=== PATIENT | female | born 1960 | race Caucasian/White ===

== ENCOUNTER 2017-06-08 14:17 | Observation (INO) ==
[2017-06-08 14:31] LABS: Bilirubin,Urine Negative (Negative); Blood,Urine Trace (Negative); Color,Urine Yellow (Yellow); Glucose,Urine (UA) >=1000 mg/dL (Normal); Ketones,Urine Negative (Negative); Leukocyte Esterase,Urine Negative (Negative); Nitrite,Urine Positive (Negative); PH,Urine 5.5 pH Units (5.0-8.0); Protein,Urine 30 mg/dL (Neg-Trace); Specific Gravity,Urine > 1.030 (1.010-1.025); Urobilinogen,Urine Normal (Normal)
[2017-06-08 14:36] LABS: Bacteria,Urine Many per hpf (None-Few); Hyaline Casts,Urine None Seen per lpf (None-Few); RBC,Urine 0-3 per hpf (0-3); Squamous Epithelial Cell,Urine Many per lpf (None-Few)
[2017-06-08 14:44] LABS: Clarity,Urine Slightly Hazy (Clear)
--- NOTE | 2017-06-08 14:49 | Emergency Department Note ---
Disposition Clinical Impression: Confusion Headache Qualifiers: Headache type: unspecified Headache chronicity pattern: acute headache Intractability: not intractable Qualified Code(s): R51 - Headache UTI (urinary tract infection) Qualifiers: Urinary tract infection type: site unspecified Hematuria presence: without hematuria Qualified Code(s): N39.0 - Urinary tract infection, site not specified Disposition: Admitted As Inpatient Condition: Fair Time of Disposition: 18:29 Headache HPI - General Stated Complaint: GROVE / AMS Time Seen by Provider: 06/08/17 14:18 Source: patient, EMS Mode of arrival: EMS Limitations: no limitations Nursing Notes Reviewed: Yes Vital Signs Reviewed: Yes - History of Present Illness HPI Narrative: 57-year-old female history hypertension, diabetes presents an emergency department via EMS for altered mental status. EMS reports daughter state that she was altered. Further EMS she was awake alert and oriented person place and time. They said their stroke scale was unremarkable. She did have a elevated blood glucose level of 450 that improved with fluids. She is also complaining of some chest pain that is been ongoing for the past 3 days. Describes as midsternal that sometimes wraps the left chest. She denies any shortness of breath or diaphoresis. She is also complaining of a headache that occurred around 1030 this morning states is a pressure on the top of her head. She denies any nausea or vomiting. Denies any blurry vision or neck pain. She states she has a history of restless leg and she takes gabapentin for this. Denies any recent illness, fever, cough. On examination she is awake alert and oriented person place and time. She seen moving all for extremities in a chaotic on a motion however when she is directed she is more calm. She is seen hitting her head in a violent behavior complaining of her headache. Given the complaint of altered mental status will work her up with CT of the head as well as urine basic labs chest x-ray EKG. Pt Subjective Complaint: headache Pain Scale: 5 - Related Data Home Medications Medication Instructions Recorded Confirmed Atenolol [Tenormin] 25 mg PO BID 11/11/14 03/31/17 Atorvastatin [Lipitor] 40 mg PO HS 11/11/14 03/31/17 Fluticasone Propionate Nasal 1 spray NS DAILY 11/11/14 03/31/17 [Flonase] Insulin Glargine,Hum.rec.anlog 35 unit SQ DAILY 11/11/14 03/31/17 [Lantus Solostar] Potassium Chloride 20 meq PO DAILY 11/11/14 03/31/17 metFORMIN [Glucophage] 1,000 mg PO BIDWM 11/11/14 03/31/17 rOPINIRole [Requip] 0.25 mg PO QID 11/11/14 03/31/17 Triamterene/HCTZ 37.5/25mg 1 tab PO DAILY 03/13/15 03/31/17 [Dyazide] Albuterol Sulfate [Proair Hfa] 2 puff IH Q4H PRN 07/24/15 03/31/17 Fenofibrate [Lofibra] 145 mg PO DAILY 07/24/15 03/31/17 Lisinopril [Zestril] 10 mg PO DAILY 07/24/15 03/31/17 Nitroglycerin [Nitrostat] 0.4 mg SL Q5-10MIN PRN 07/24/15 03/31/17 Gabapentin [Neurontin] 800 mg PO 3-4XD 08/02/16 03/31/17 Tramadol HCl [Ultram] 50 mg PO BID PRN 08/02/16 03/31/17 Previous Rx's Medication Instructions Recorded Budesonide/Formoterol 160/4.5 2 puff IH BIDR inhaler 01/06/16 [Symbicort 160/4.5] Naproxen [Naprosyn] 500 mg PO BID PRN #15 tablet 05/01/16 Cyclobenzaprine [Flexeril] 10 mg PO TID #15 tablet 08/02/16 Ibuprofen [Motrin] 800 mg PO Q8HR #15 tablet 08/02/16 Albuterol Neb [Proventil Neb] 2.5 mg IH Q4HR PRN #30 vial.neb 10/07/16 PredniSONE [Deltasone] 10 mg PO TAPER #48 tablet 10/07/16 Ondansetron ODT [Zofran ODT] 4 mg SL Q4HR PRN #10 tab.rapdis 11/28/16 Diphenoxylate/Atropine [Lomotil 2 each PO QID #10 tablet 11/29/16 2.5 mg/0.025 mg] Diclofenac Sodium [Voltaren] 50 mg PO Q8HR #21 tablet. 03/31/17 Orphenadrine [Norflex] 100 mg PO Q12HR #20 tablet.er 03/31/17 Allergies Allergy/AdvReac Type Severity Reaction Status Date / Time No Known Allergies Allergy Verified 03/31/17 15:16 All systems ED: reviewed and negative except as stated. Review of Systems: As Per HPI Constitutional: Denies: fever, chills ENT ED: Denies: congestion Cardiovascular: Reports: chest pain. Denies: dyspnea on exertion Respiratory: Denies: cough, dyspnea Gastrointestinal: Denies: abdominal pain, nausea, vomiting Genitourinary: Denies: urgency, dysuria Musculoskeletal: Denies: back pain, neck pain Integumentary: Denies: rash, abrasion Neurological: Reports: headache Psychiatric: Denies: anxiety Headache PMH - Past Medical History Medical history: Reports: COPD, diabetes, GERD, hyperlipidemia, hypertension, other Female Surgical History: Reports: , cholecystectomy, hysterectomy, other Psychiatric history: Reports: no psych history SAFETY SITTER history: Reports: no SAFETY SITTER history - Social History Smoking Status: Current every day smoker Alcohol use: Reports: none Drug use: Reports: none Physical Exam - General Limitations: altered mental status General appearance: alert, in no apparent distress - Head Head exam: atraumatic, normocephalic, normal inspection - Eye Eye exam: Present: normal appearance, PERRL, EOMI - ENT ENT exam: normal exam, normal oropharynx, mucous membranes moist - Neck Neck exam: Present: normal inspection, full ROM, trachea midline - Chest Chest inspection: Present: normal inspection, symmetric chest wall rise - Respiratory Respiratory exam: Present: normal lung sounds bilaterally - Cardiovascular Cardiovascular exam: Present: regular rate, normal rhythm, normal heart sounds. Absent: systolic murmur, diastolic murmur - Abdominal Exam Abdominal exam: Present: soft, Non-Tender, normal bowel sounds. Absent: tenderness, distention, guarding, rebound, rigidity - Extremities Exam Extremities exam: Present: normal inspection, full ROM, normal capillary refill. Absent: tenderness, pedal edema, calf tenderness - Back Exam Back exam: Present: normal inspection, full ROM. Absent: tenderness - Neurological Exam Neurological exam: Present: alert, oriented X3, CN II-XII intact - Expanded Neurological Exam Patient oriented to: Present: person, place, time Cranial nerves: EOM function (II, III, IV, ): Normal, facial sensation (V): Normal, facial palsy (VII): Normal, gag reflex (IX): Normal, spinal accessory function (XI): Normal, tongue deviation (XII): Normal Motor strength - LUE: 5/5 Motor strength - RUE: 5/5 Motor strength - LLE: 5/5 Motor strength - RLE: 5/5 - Psychiatric Psychiatric exam: Present: normal affect, normal mood - Skin Skin exam: Present: warm, dry, intact, normal color Course Course Narrative: On repeat evaluation with daughters at that side, they say patient is not quite acting herself. Earlier today she was complaining of a headache and seen hitting herself in the head. They say this is not normal. Patient also has been having elevated blood pressures which she described as a throbbing sensation. Stated the sometimes felt like it made her headache worse. The patient now states that she has a history of migraines and several years ago had a similar episode like this headache. At this time her headache has completely resolved. Review of CT head is unremarkable for any intracranial abnormality. CT was performed within 6 hours of onset. She does not have a focal neural deficits on examination. No facial droop. No neck stiffness or meningeal signs. Less likely to be subarachnoid hemorrhage. Patient appears no more alert than prior. Review of her urine, urinalysis is consistent with infection. She will be treated for urinary tract infection with Ceftriaxone. Review of labs, no leukocytosis. Her liver function appears normal. She denies history of liver disease. Her ammonia however is elevated at 56. At this moment because she is not encephalopathy we have decided to not treat her with any lactulose. She has a history diabetes in her blood glucose is in the 300s with IV fluid hydration. Her urinalysis does not show ketones. She does not have a metabolic acidosis. She is not having any to small breathing abdominal tenderness to suggest DKA. Her chest pain she initially complained, she felt her heart pounding was in association with her pulse. She associated it to the chest pain that she is been experiencing the past 3 days. Her EKG did not reveal any acute ischemic changes. Troponin is less than 0.03. At this time low suspicion for ACS. I had a long discussion with the patient and daughters in the room and they state that she is not quite at baseline. Given her initial presentation of confusion and violent behavior patient will be admitted for observation and treated for her urinary tract infection. Impression is confusion, urinary tract infection and headache. - Consultations Consultation #1: Spoke with on-call hospitalist rodrick Mejia to admit for UTI, confusion , headache. No further orders at this time. Vital Signs Temperature 97.9 F 06/08/17 14:19 Pulse Rate 105 06/08/17 14:19 Respiratory Rate 22 06/08/17 14:19 Blood Pressure 130/59 06/08/17 14:19 O2 Sat by Pulse Oximetry 97 06/08/17 14:19 Temperature 97.9 F 06/08/17 14:53 Pulse Rate 89 06/08/17 18:29 Respiratory Rate 18 06/08/17 18:29 Blood Pressure 138/89 06/08/17 18:29 O2 Sat by Pulse Oximetry 97 06/08/17 18:29 Oxygen Delivery Oxygen Delivery Nasal Cannula Headache - MDM Narrative Medical decision making narrative: Patient was discussed with my attending physician who agrees with ED management and final disposition. They independently evaluated the patient. Please refer to their attestation to this encounter for additional information. This note was generated by [employer] voice recognition software and as a result grammatical or spelling errors may occur using this program. - Medical Records Medical records reviewed: Yes I reviewed the patient's medical records. - Lab Data Lab results reviewed: Yes I reviewed the patient's lab results. Result diagrams: 06/08/17 14:31 06/08/17 14:31 Lab Results 06/08/17 06/08/17 06/08/17 Range/Units 14:20 14:31 14:31 WBC 7.5 (4.3-11.1) K/mcL RBC 5.30 H (3.82-4.97) M/mcL Hgb 15.4 (11.5-15.4) g/dL Hct 44.9 (35.3-44.9) % MCV 84.7 (83.0-100.0) fL MCH 29.1 (28.0-33.3) pg MCHC 34.3 (31.6-35.5) g/dL RDW 13.7 (11.5-14.5) % Plt Count 187 (140-400) K/mcL MPV 9.7 (9.4-12.4) fL Immature Gran % 0.3 (0-4) % Seg Neutrophils % 64.2 % Lymphocytes % 27.9 % Monocytes % 5.2 % Eosinophils % 2.0 % Basophils % 0.4 % Neutrophils # 4.8 (1.6-8.9) K/mcL Lymphocytes # 2.1 (0.6-4.6) K/mcL Monocytes # 0.4 (0.0-1.3) K/mcL Eosinophils # 0.2 (0.0-0.6) K/mcL Basophils # 0.0 (0.0-0.2) K/mcL PT 10.7 (9.4-12.1) Seconds INR 1.0 APTT 26.8 (26.0-36.0) Seconds Sodium (136-145) mEq/L Potassium (3.5-5.1) mEq/L Chloride (98-107) mEq/L Carbon Dioxide (23-29) mEq/L BUN (6-20) mg/dL Creatinine (0.60-1.20) mg/dL Est GFR ( Amer) (> 60) Est GFR (Non-Af Amer) (> 60) BUN/Creatinine Ratio (6-26) Glucose (70-105) mg/dL Calculated Osmolality (280-300) Calcium (8.6-10.3) mg/dL Magnesium (1.6-2.6) mg/dL Total Bilirubin (0.3-1.0) mg/dL Direct Bilirubin (0.0-0.2) mg/dL Indirect Bilirubin (0.0-1.2) mg/dL AST (13-39) Units/L ALT (7-52) Units/L Alkaline Phosphatase (34-104) Units/L Ammonia (16-53) mcmol/L Troponin I (< 0.04) ng/mL Serum Total Protein (6.4-8.9) g/dL Albumin (3.5-5.7) g/dL Globulin (2.4-3.5) g/dL Albumin/Globulin Ratio (1.1-2.2) Urine Color Yellow (Yellow) Urine Clarity Slightly Hazy (Clear) Urine pH 5.5 (5.0-8.0) pH Units Ur Specific [place] > 1.030 H (1.010-1.025) Urine Protein 30 H (Neg-Trace) mg/dL Urine Glucose (UA) >=1000 H (Normal) mg/dL Urine Ketones Negative (Negative) mg/dL Urine Blood Trace H (Negative) Urine Nitrite Positive A (Negative) Urine Bilirubin Negative (Negative) Urine Urobilinogen Normal (Normal) mg/dL Ur Leukocyte Esterase Negative (Negative) Urine Microscopic RBC 0-3 (0-3) per hpf Urine Microscopic WBC 3-5 H (0-3) per hpf Ur Squamous Epith Cells Many H (None-Few) per lpf Urine Bacteria Many H (None-Few) per hpf Hyaline Casts None Seen (None-Few) per lpf Ur Culture Indicated? NO. A (NO) 06/08/17 06/08/17 Range/Units 14:31 15:18 WBC (4.3-11.1) K/mcL RBC (3.82-4.97) M/mcL Hgb (11.5-15.4) g/dL Hct (35.3-44.9) % MCV (83.0-100.0) fL MCH (28.0-33.3) pg MCHC (31.6-35.5) g/dL RDW (11.5-14.5) % Plt Count (140-400) K/mcL MPV (9.4-12.4) fL Immature Gran % (0-4) % Seg Neutrophils % % Lymphocytes % % Monocytes % % Eosinophils % % Basophils % % Neutrophils # (1.6-8.9) K/mcL Lymphocytes # (0.6-4.6) K/mcL Monocytes # (0.0-1.3) K/mcL Eosinophils # (0.0-0.6) K/mcL Basophils # (0.0-0.2) K/mcL PT (9.4-12.1) Seconds INR APTT (26.0-36.0) Seconds Sodium 138 (136-145) mEq/L Potassium 4.0 (3.5-5.1) mEq/L Chloride 104 (98-107) mEq/L Carbon Dioxide 26 (23-29) mEq/L BUN 23 H (6-20) mg/dL Creatinine 0.94 (0.60-1.20) mg/dL Est GFR ( Amer) > 60 (> 60) Est GFR (Non-Af Amer) > 60 (> 60) BUN/Creatinine Ratio 24 (6-26) Glucose 324 H (70-105) mg/dL Calculated Osmolality 302 H (280-300) Calcium 9.1 (8.6-10.3) mg/dL Magnesium 1.8 (1.6-2.6) mg/dL Total Bilirubin 0.4 (0.3-1.0) mg/dL Direct Bilirubin 0.1 (0.0-0.2) mg/dL Indirect Bilirubin 0.3 (0.0-1.2) mg/dL AST 20 (13-39) Units/L ALT 17 (7-52) Units/L Alkaline Phosphatase 84 (34-104) Units/L Ammonia 56 H (16-53) mcmol/L Troponin I < 0.03 (< 0.04) ng/mL Serum Total Protein 6.6 (6.4-8.9) g/dL Albumin 3.8 (3.5-5.7) g/dL Globulin 2.8 (2.4-3.5) g/dL Albumin/Globulin Ratio 1.4 (1.1-2.2) Urine Color (Yellow) Urine Clarity (Clear) Urine pH (5.0-8.0) pH Units Ur Specific [place] (1.010-1.025) Urine Protein (Neg-Trace) mg/dL Urine Glucose (UA) (Normal) mg/dL Urine Ketones (Negative) mg/dL Urine Blood (Negative) Urine Nitrite (Negative) Urine Bilirubin (Negative) Urine Urobilinogen (Normal) mg/dL Ur Leukocyte Esterase (Negative) Urine Microscopic RBC (0-3) per hpf Urine Microscopic WBC (0-3) per hpf Ur Squamous Epith Cells (None-Few) per lpf Urine Bacteria (None-Few) per hpf Hyaline Casts (None-Few) per lpf Ur Culture Indicated? (NO) - Radiology Data Radiology results reviewed: Yes I reviewed the patient's radiology results. Chest X-Ray 06/08/17 14:18 IMPRESSION: No acute abnormalities seen in the chest D/ / Josias Rojas MD / Josias Rojas MD Interpreting Provider: Josias Rojas MD Head CT 06/08/17 14:19 IMPRESSION: No acute intracranial abnormality. D/ / Trenton Arceo / Trenton Arceo Interpreting Provider: Trenton Arceo - EKG Data EKG attestation: Yes I reviewed and interpreted this EKG. EKG results narrative: EKG performed 1411 sinus tachycardia 112 beats per minute, normal axis, no ST elevation or depression, no T wave inversion, some baseline artifact otherwise no acute ischemic changes. Intervals appear within normal limits. Compared to prior EKG performed 11/29/2016 shows similar consistent findings of sinus tachycardia 1 26 bpm. Attestation Statement - Attestation Attestation: I, Billy Magallon DO, examined this patient [id number] and my medical decision-making was reviewed with Trenton Bach DO , Resident Physician. I agree with the documented findings, disposition and treatment plan as described except to the extent set forth below. Please see my progress notes for details.
[2017-06-08 15:06] LABS: Basophils % 0.4 %; Eosinophils # 0.2 K/mcL (0.0-0.6); Hematocrit 44.9 % (35.3-44.9); Hemoglobin 15.4 g/dL (11.5-15.4); Immature Granulocytes % 0.3 % (0-4); Lymphocytes # 2.1 K/mcL (0.6-4.6); Lymphocytes % 27.9 %; Mean Corpuscular HGB Conc 34.3 g/dL (31.6-35.5); Mean Corpuscular Hemoglobin 29.1 pg (28.0-33.3); Mean Corpuscular Volume 84.7 fL (83.0-100.0); Mean Platelet Volume 9.7 fL (9.4-12.4); Monocytes # 0.4 K/mcL (0.0-1.3); Monocytes % 5.2 %; Neutrophils # 4.8 K/mcL (1.6-8.9); Platelet Count 187 K/mcL (140-400); Red Cell Distribution Width 13.7 % (11.5-14.5); Segmented Neutrophils % 64.2 %
[2017-06-08 15:11] LABS: Prothrombin Time 10.7 Seconds (9.4-12.1)
[2017-06-08 15:14] LABS: Activated Partial Thrombo Time 26.8 Seconds (26.0-36.0)
[2017-06-08 15:24] LABS: Troponin I < 0.03 ng/mL (< 0.04)
[2017-06-08 15:26] LABS: Alanine Aminotransferase 17 Units/L (7-52); Albumin 3.8 g/dL (3.5-5.7); Albumin/Globulin Ratio 1.4 (1.1-2.2); Alkaline Phosphatase 84 Units/L (34-104); Aspartate Amino Transferase 20 Units/L (13-39); BUN/Creatinine Ratio 24 (6-26); Bilirubin,Direct 0.1 mg/dL (0.0-0.2); Bilirubin,Indirect 0.3 mg/dL (0.0-1.2); Bilirubin,Total 0.4 mg/dL (0.3-1.0); Blood Urea Nitrogen 23 mg/dL (6-20); Calcium 9.1 mg/dL (8.6-10.3); Carbon Dioxide 26 mEq/L (23-29); Chloride 104 mEq/L (98-107); Globulin 2.8 g/dL (2.4-3.5); Glucose 324 mg/dL (70-105); Osmolality,Calculated 302 (280-300); Sodium 138 mEq/L (136-145); Total Protein 6.6 g/dL (6.4-8.9); eGFR For African Americans > 60 (> 60); eGFR For Non-African Americans > 60 (> 60)
[2017-06-08 15:36] LABS: Magnesium 1.8 mg/dL (1.6-2.6)
--- NOTE | 2017-06-08 15:44 | Emergency Department Note ---
Disposition Clinical Impression: Headache, Confusion, UTI (urinary tract infection) Disposition: Admitted As Inpatient Condition: Fair Forms: ED Satisfaction Letter Time of Disposition: 17:56 General Adult HPI - General Chief complaint: ED Chest Pain Stated complaint: [facility] / A[facility] Time Seen by Provider: 06/08/17 14:18 Source: patient, EMS Mode of arrival: EMS Limitations: no limitations - History of Present Illness Pain Scale: 5 - Related Data Home Medications Medication Instructions Recorded Confirmed Atenolol [Tenormin] 25 mg PO BID 11/11/14 03/31/17 Atorvastatin [Lipitor] 40 mg PO HS 11/11/14 03/31/17 Fluticasone Propionate Nasal 1 spray NS DAILY 11/11/14 03/31/17 [Flonase] Insulin Glargine,Hum.rec.anlog 35 unit SQ DAILY 11/11/14 03/31/17 [Lantus Solostar] Potassium Chloride 20 meq PO DAILY 11/11/14 03/31/17 metFORMIN [Glucophage] 1,000 mg PO BIDWM 11/11/14 03/31/17 rOPINIRole [Requip] 0.25 mg PO QID 11/11/14 03/31/17 Triamterene/HCTZ 37.5/25mg 1 tab PO DAILY 03/13/15 03/31/17 [Dyazide] Albuterol Sulfate [Proair Hfa] 2 puff IH Q4H PRN 07/24/15 03/31/17 Fenofibrate [Lofibra] 145 mg PO DAILY 07/24/15 03/31/17 Lisinopril [Zestril] 10 mg PO DAILY 07/24/15 03/31/17 Nitroglycerin [Nitrostat] 0.4 mg SL Q5-10MIN PRN 07/24/15 03/31/17 Gabapentin [Neurontin] 800 mg PO 3-4XD 08/02/16 03/31/17 Tramadol HCl [Ultram] 50 mg PO BID PRN 08/02/16 03/31/17 Previous Rx's Medication Instructions Recorded Budesonide/Formoterol 160/4.5 2 puff IH BIDR inhaler 01/06/16 [Symbicort 160/4.5] Naproxen [Naprosyn] 500 mg PO BID PRN #15 tablet 05/01/16 Cyclobenzaprine [Flexeril] 10 mg PO TID #15 tablet 08/02/16 Ibuprofen [Motrin] 800 mg PO Q8HR #15 tablet 08/02/16 Albuterol Neb [Proventil Neb] 2.5 mg IH Q4HR PRN #30 vial.neb 10/07/16 PredniSONE [Deltasone] 10 mg PO TAPER #48 tablet 10/07/16 Ondansetron ODT [Zofran ODT] 4 mg SL Q4HR PRN #10 tab.rapdis 11/28/16 Diphenoxylate/Atropine [Lomotil 2 each PO QID #10 tablet 11/29/16 2.5 mg/0.025 mg] Diclofenac Sodium [Voltaren] 50 mg PO Q8HR #21 tablet. 03/31/17 Orphenadrine [Norflex] 100 mg PO Q12HR #20 tablet.er 03/31/17 Allergies Allergy/AdvReac Type Severity Reaction Status Date / Time No Known Allergies Allergy Verified 03/31/17 15:16 Constitutional: Denies: fever, chills ENT ED: Denies: congestion Cardiovascular: Reports: chest pain. Denies: dyspnea on exertion Respiratory: Denies: cough, dyspnea Gastrointestinal: Denies: abdominal pain, nausea, vomiting Genitourinary: Denies: urgency, dysuria Musculoskeletal: Denies: back pain, neck pain Integumentary: Denies: rash, abrasion Neurological: Reports: headache Psychiatric: Denies: anxiety Past Medical History - Past Medical History Medical history: Reports: COPD, diabetes, GERD, hyperlipidemia, hypertension, other Surgical history: Reports: , cholecystectomy, hysterectomy, other Psychiatric history: Reports: no psych history SHODER FILLER history: Reports: no SHODER FILLER history - Social History Smoking Status: Current every day smoker Smokeless Tobacco Status: No Alcohol use: Reports: none Drug use: Reports: none Physical Exam - General Limitations: no limitations General appearance: alert, in no apparent distress Course Vital Signs Temperature 97.9 F 06/08/17 14:19 Pulse Rate 105 06/08/17 14:19 Respiratory Rate 22 06/08/17 14:19 Blood Pressure 130/59 06/08/17 14:19 O2 Sat by Pulse Oximetry 97 06/08/17 14:19 Temperature 97.9 F 06/08/17 14:53 Pulse Rate 95 06/08/17 16:31 Respiratory Rate 15 06/08/17 16:31 Blood Pressure 132/66 06/08/17 14:53 O2 Sat by Pulse Oximetry 93 06/08/17 16:31 Oxygen Delivery Oxygen Delivery Room Air Medical Decision Making - Lab Data Result diagrams: 06/08/17 14:31 06/08/17 14:31 Lab Results 06/08/17 06/08/17 06/08/17 Range/Units 14:20 14:31 14:31 WBC 7.5 (4.3-11.1) K/mcL RBC 5.30 H (3.82-4.97) M/mcL Hgb 15.4 (11.5-15.4) g/dL Hct 44.9 (35.3-44.9) % MCV 84.7 (83.0-100.0) fL MCH 29.1 (28.0-33.3) pg MCHC 34.3 (31.6-35.5) g/dL RDW 13.7 (11.5-14.5) % Plt Count 187 (140-400) K/mcL MPV 9.7 (9.4-12.4) fL Immature Gran % 0.3 (0-4) % Seg Neutrophils % 64.2 % Lymphocytes % 27.9 % Monocytes % 5.2 % Eosinophils % 2.0 % Basophils % 0.4 % Neutrophils # 4.8 (1.6-8.9) K/mcL Lymphocytes # 2.1 (0.6-4.6) K/mcL Monocytes # 0.4 (0.0-1.3) K/mcL Eosinophils # 0.2 (0.0-0.6) K/mcL Basophils # 0.0 (0.0-0.2) K/mcL PT 10.7 (9.4-12.1) Seconds INR 1.0 APTT 26.8 (26.0-36.0) Seconds Sodium (136-145) mEq/L Potassium (3.5-5.1) mEq/L Chloride (98-107) mEq/L Carbon Dioxide (23-29) mEq/L BUN (6-20) mg/dL Creatinine (0.60-1.20) mg/dL Est GFR ( Amer) (> 60) Est GFR (Non-Af Amer) (> 60) BUN/Creatinine Ratio (6-26) Glucose (70-105) mg/dL Calculated Osmolality (280-300) Calcium (8.6-10.3) mg/dL Magnesium (1.6-2.6) mg/dL Total Bilirubin (0.3-1.0) mg/dL Direct Bilirubin (0.0-0.2) mg/dL Indirect Bilirubin (0.0-1.2) mg/dL AST (13-39) Units/L ALT (7-52) Units/L Alkaline Phosphatase (34-104) Units/L Ammonia (16-53) mcmol/L Troponin I (< 0.04) ng/mL Serum Total Protein (6.4-8.9) g/dL Albumin (3.5-5.7) g/dL Globulin (2.4-3.5) g/dL Albumin/Globulin Ratio (1.1-2.2) Urine Color Yellow (Yellow) Urine Clarity Slightly Hazy (Clear) Urine pH 5.5 (5.0-8.0) pH Units Ur Specific [place] > 1.030 H (1.010-1.025) Urine Protein 30 H (Neg-Trace) mg/dL Urine Glucose (UA) >=1000 H (Normal) mg/dL Urine Ketones Negative (Negative) mg/dL Urine Blood Trace H (Negative) Urine Nitrite Positive A (Negative) Urine Bilirubin Negative (Negative) Urine Urobilinogen Normal (Normal) mg/dL Ur Leukocyte Esterase Negative (Negative) Urine Microscopic RBC 0-3 (0-3) per hpf Urine Microscopic WBC 3-5 H (0-3) per hpf Ur Squamous Epith Cells Many H (None-Few) per lpf Urine Bacteria Many H (None-Few) per hpf Hyaline Casts None Seen (None-Few) per lpf Ur Culture Indicated? NO. A (NO) 06/08/17 06/08/17 Range/Units 14:31 15:18 WBC (4.3-11.1) K/mcL RBC (3.82-4.97) M/mcL Hgb (11.5-15.4) g/dL Hct (35.3-44.9) % MCV (83.0-100.0) fL MCH (28.0-33.3) pg MCHC (31.6-35.5) g/dL RDW (11.5-14.5) % Plt Count (140-400) K/mcL MPV (9.4-12.4) fL Immature Gran % (0-4) % Seg Neutrophils % % Lymphocytes % % Monocytes % % Eosinophils % % Basophils % % Neutrophils # (1.6-8.9) K/mcL Lymphocytes # (0.6-4.6) K/mcL Monocytes # (0.0-1.3) K/mcL Eosinophils # (0.0-0.6) K/mcL Basophils # (0.0-0.2) K/mcL PT (9.4-12.1) Seconds INR APTT (26.0-36.0) Seconds Sodium 138 (136-145) mEq/L Potassium 4.0 (3.5-5.1) mEq/L Chloride 104 (98-107) mEq/L Carbon Dioxide 26 (23-29) mEq/L BUN 23 H (6-20) mg/dL Creatinine 0.94 (0.60-1.20) mg/dL Est GFR ( Amer) > 60 (> 60) Est GFR (Non-Af Amer) > 60 (> 60) BUN/Creatinine Ratio 24 (6-26) Glucose 324 H (70-105) mg/dL Calculated Osmolality 302 H (280-300) Calcium 9.1 (8.6-10.3) mg/dL Magnesium 1.8 (1.6-2.6) mg/dL Total Bilirubin 0.4 (0.3-1.0) mg/dL Direct Bilirubin 0.1 (0.0-0.2) mg/dL Indirect Bilirubin 0.3 (0.0-1.2) mg/dL AST 20 (13-39) Units/L ALT 17 (7-52) Units/L Alkaline Phosphatase 84 (34-104) Units/L Ammonia 56 H (16-53) mcmol/L Troponin I < 0.03 (< 0.04) ng/mL Serum Total Protein 6.6 (6.4-8.9) g/dL Albumin 3.8 (3.5-5.7) g/dL Globulin 2.8 (2.4-3.5) g/dL Albumin/Globulin Ratio 1.4 (1.1-2.2) Urine Color (Yellow) Urine Clarity (Clear) Urine pH (5.0-8.0) pH Units Ur Specific [place] (1.010-1.025) Urine Protein (Neg-Trace) mg/dL Urine Glucose (UA) (Normal) mg/dL Urine Ketones (Negative) mg/dL Urine Blood (Negative) Urine Nitrite (Negative) Urine Bilirubin (Negative) Urine Urobilinogen (Normal) mg/dL Ur Leukocyte Esterase (Negative) Urine Microscopic RBC (0-3) per hpf Urine Microscopic WBC (0-3) per hpf Ur Squamous Epith Cells (None-Few) per lpf Urine Bacteria (None-Few) per hpf Hyaline Casts (None-Few) per lpf Ur Culture Indicated? (NO) Attestation Statement - Attestation Attestation: I, Billy Magallon DO, examined this patient [id number] and my medical decision-making was reviewed with (Trenton Bach DO , Resident Physician. I agree with the documented findings, disposition and treatment plan as described except to the extent set forth below. Please see my progress notes for details. 57-year-old female presents to the emergency room by EMS for evaluation of altered mentation according to the family. Squad was called to the house considering the patient was acting abnormal. On arrival here, the patient is alert she is oriented she is speaking in full sentences and did not show any acute signs of distress. Her Accu-Chek in transit was 450 and repeat was 350. Patient denies any recent illnesses trauma. Denies any medication changes. Denies any chest pain shortness of breath headache vision changes nausea vomiting or diarrhea. Denies any fevers or chills. Patient has no other new medications or medication changes at this point. Physical exam shows an obese appearing female in no apparent distress. She does have uncontrolled movements of the lower extremities consistent with her restless leg syndrome. She does take gabapentin for this at home. Patient's lungs are clear heart is regular. Neurologic evaluation is benign and is atraumatic pupils are equal round and reactive and extraocular muscles are intact. She denies any history of liver dysfunction or failure. She answers all questions appropriately. She does appear to have appropriate neuromotor function when she intends on doing a physical procedure. When she goes to sign her name she has no signs of shaking or tremulousness-like presentation. All other symptoms are present when she is resting in the bed. Patient will screening evaluation a CT of the head chest x- ray EKG labs including CBC chemistry troponin and BNP ammonium magnesium ordered at this time along with urinalysis. Disposition will be determined once full workup and treatment course are established and completed. See detailed documentation of the physical exam, medical intervention, medical decision-making and disposition in the resident physician's note. No critical care provider this patient's treatment course at this time. 1500 Agent is found that a urinary tract infection. This could be the source to her confusion today. Patient will have completion of the workup and treatment course and disposition to be determined. Family is with her at the bedside no deformity of the projected plan as well as findings during this workup and determine disposition. Patient is otherwise been clinically stable throughout the treatment course. 1645 Patient's family is concerned about the confusion her outbursts of emotional and physical tremors as well as the way she was acting home. Patient does not have any acute findings at this time outside of a urinary tract infection. The tremors that she presented with do appear to have resolved. Her ammonia is slightly elevated but her liver function testing is normal. Patient will be offered admission this time secondary to concerns for the unknown etiology along with the progression of urinary tract infection. Antibiotics were restarted this point disposition will be determined. As will be contacted the patient is accommodating for admission . Patient was discussed with the hospitalist for admission. Family is comfortable with this plan. Patient will be admitted for further evaluation and management.
[2017-06-08] MEDS ORDERED: cefTRIAXone 1,000 MG in Water for inj. (sterile) 20 ML 10 ML IVP ONE (16:56)
--- NOTE | 2017-06-08 20:36 | Internal Med History&Physical ---
Date of Encounter: 06/08/17 Time of Encounter: 20:33 Internal Medicine - H&P: HPI Chief complaint: heacheade, mental status changes amd chest pain Admitted From: Emergency Dept Plans for Post Hospital Care: Home History of present illness: Ms. Bedolla is a 57 year old female Patient with history of hypertension, obesity, diabetes, COPD, high cholesterol and restless leg syndrome. Patient was brought in by family due to lethargy mental status changes patient per family has been lethargic and sometimes confused with complaining of headache also 3 days of chest pain describes as a pressure sometimes goes to her left shoulder and then she was brought into the emergency room evaluation head CT was negative glucose 450 UA shows UTI patient is admitted for follow evaluation. Denies any nausea or vomiting no visual disturbance no weakness or focal deficits on my exam patient orientsed x 3 Past Med Surg Social Fam HX - Past Medical History Medical history: COPD, diabetes, GERD, hyperlipidemia, hypertension, other Psychiatric history: no psych history - Past Surgical History Surgical History: , cholecystectomy, hysterectomy, other - Social History Smoking Status: Current every day smoker Smokeless Tobacco Status: No Alcohol use: none Drug use: none - Family History Father Adopted: No Living Status: Cause of : heart attack Hx Family Cardiac Disorders: Yes (Dad heart attack) Hx Family Respiratory Disorders: No Hx Family Cancer: Yes Hx Family GI Disorders: No Hx Family Genitourinary Disorders: No Hx Family Endocrine Disorder: Yes (Dm aunt and cousin) Hx Family Musculoskeletal Disorders: No Hx Family Neuromuscular Disorders: No Hx Family Neurologic Disorders: No Hx Family HEENT Disorders: No Hx Family Reproductive Disorders: No Hx Family Psychosocial Disorders: No Hx Family Medical Disorders: No Internal Medicine - H&P: Meds Atenolol [Tenormin] 25 mg PO BID 11/11/14 [History] Atorvastatin [Lipitor] 40 mg PO HS 11/11/14 [History] Fluticasone Propionate Nasal [Flonase] 1 spray NS DAILY 11/11/14 [History] Insulin Glargine,Hum.rec.anlog [Lantus Solostar] 35 unit SQ DAILY 11/11/14 [ History] Potassium Chloride 20 meq PO DAILY 11/11/14 [History] metFORMIN [Glucophage] 1,000 mg PO BIDWM 11/11/14 [History] rOPINIRole [Requip] 0.25 mg PO QID 11/11/14 [History] Triamterene/HCTZ 37.5/25mg [Dyazide] 1 tab PO DAILY 03/13/15 [History] Albuterol Sulfate [Proair Hfa] 2 puff IH Q4H PRN 07/24/15 [History] Fenofibrate [Lofibra] 145 mg PO DAILY 07/24/15 [History] Lisinopril [Zestril] 10 mg PO DAILY 07/24/15 [History] Nitroglycerin [Nitrostat] 0.4 mg SL Q5-10MIN PRN 07/24/15 [History] Budesonide/Formoterol 160/4.5 [Symbicort 160/4.5] 2 puff IH BIDR inhaler [Rx] Naproxen [Naprosyn] 500 mg PO BID PRN #15 tablet 05/01/16 [Rx] Cyclobenzaprine [Flexeril] 10 mg PO TID #15 tablet 08/02/16 [Rx] Gabapentin [Neurontin] 800 mg PO 3-4XD 08/02/16 [History] Ibuprofen [Motrin] 800 mg PO Q8HR #15 tablet 08/02/16 [Rx] Tramadol HCl [Ultram] 50 mg PO BID PRN 08/02/16 [History] Albuterol Neb [Proventil Neb] 2.5 mg IH Q4HR PRN #30 vial.neb 10/07/16 [Rx] PredniSONE [Deltasone] 10 mg PO TAPER #48 tablet 10/07/16 [Rx] Ondansetron ODT [Zofran ODT] 4 mg SL Q4HR PRN #10 tab.rapdis 11/28/16 [Rx] Diphenoxylate/Atropine [Lomotil 2.5 mg/0.025 mg] 2 each PO QID #10 tablet [Rx] Diclofenac Sodium [Voltaren] 50 mg PO Q8HR #21 tablet.dr 03/31/17 [Rx] Orphenadrine [Norflex] 100 mg PO Q12HR #20 tablet.er 03/31/17 [Rx] 3 Allergy/AdvReac Type Severity Reaction Status Date / Time No Known Allergies Allergy Verified 02/15/18 15:16 All Systems PM: A 10-system review of systems was performed and is negative for pertinent findings except as documented above in the HPI. - Constitutional Vitals: Temp Pulse Resp BP Pulse Ox 98.2 F 82 20 146/84 93 06/08/17 20:00 06/08/17 20:00 06/08/17 20:00 06/08/17 20:00 06/08/17 20:00 - Head Head exam: Present: atraumatic, normocephalic - Eye Eye exam: Present: PERRL, conjuntiva pink, sclera anicteric Pupils: Present: PERRL - Neck Neck exam general surgery: Present: supple, trachea midline. Absent: lymphadenopathy - Respiratory Respiratory exam: Present: CTAB. Absent: accessory muscle use, rales, rhonchi, wheezes - Cardiovascular Cardiovascular exam: Present: RRR, +S1, +S2. Absent: diastolic murmur, gallop, rubs, systolic murmur - GI/Abdominal GI/Abdominal exam: Present: normal bowel sounds, soft, no peritoneal signs. Absent: distended, tenderness - Extremities Exam Extremities exam: Present: warm, radial pulses palpable and symmetrical. Absent : calf tenderness, cyanotic, pedal edema - Neurological Exam Neurological exam: Present: CN II-XII intact, oriented X3, no focal deficits. Absent: pronater drift, facial droop, speech deficit - Skin Skin exam: Present: dry, intact Internal Med - H&P Results - Labs CBC & Chem 7: 06/08/17 14:31 06/08/17 14:31 - Assessment and plan (1) Mental status change Current Visit: Yes Status: Acute Assessment and plan: Currently evaluation is unremarkable head CT is negative patient does have UTI which is being treated at present patient oriented times during Qualifiers: Altered mental status type: disorientation Qualified Code(s): R41.0 - Disorientation, unspecified (2) COPD (chronic obstructive pulmonary disease) Current Visit: Yes Status: Chronic Assessment and plan: No active wheezing at present which check a stat ABG to make sure she is not retaining CO2 Qualifiers: COPD type: emphysema Emphysema type: unspecified Qualified Code(s): J43.9 - Emphysema, unspecified (3) IDDM (insulin dependent diabetes mellitus) Current Visit: No Status: Chronic Assessment and plan: Chronic and appears uncontrolled glucose over 400 in ER will continue IV hydration resume home medication and place on sliding scale (4) Current smoker Current Visit: No Status: Chronic (5) HTN (hypertension) Current Visit: No Status: Chronic Assessment and plan: Chronic and well controlled Qualifiers: Hypertension type: essential hypertension Qualified Code(s): I10 - Essential (primary) hypertension (6) HLD (hyperlipidemia) Current Visit: No Status: Chronic Assessment and plan: Chronic and recheck in a.m. Qualifiers: Hyperlipidemia type: pure hypercholesterolemia Qualified Code(s): E78.00 - Pure hypercholesterolemia, unspecified; E78.0 - Pure hypercholesterolemia (7) Obesity, Class II, BMI 35.0-39.9, with comorbidity (see actual BMI) Current Visit: No Status: Chronic (8) Headache Current Visit: Yes Status: Acute Assessment and plan: Persistent headache CT of the head is unremarkable we will start on Toradol if persistent consider neurologic consult Qualifiers: Headache type: unspecified Headache chronicity pattern: acute headache Intractability: not intractable Qualified Code(s): R51 - Headache (9) UTI (urinary tract infection) Current Visit: Yes Status: Acute Assessment and plan: Withstand for urine culture and continue on Rocephin IV possible contribution to mental status changes Qualifiers: Urinary tract infection type: acute cystitis Hematuria presence: without hematuria Qualified Code(s): N30.00 - Acute cystitis without hematuria - Time Spent With Patient Total time spent is greater than 50% in coordination of care (as documented) at patient's floor/unit and/or counseling patient:
[2017-06-08] MEDS ORDERED: Naloxone 0.4 MG/ML INJ IVP PRN (20:43)
[2017-06-08] MEDS ORDERED: Acetaminophen 325 MG TABLET PO PRN (20:43)
[2017-06-08] MEDS ORDERED: traMADol 50 MG TABLET PO PRN (20:43)
[2017-06-08] MEDS ORDERED: Albuterol 2.5 MG/3 ML NEBULIZER IH PRN (20:47)
[2017-06-08] MEDS ORDERED: Ondansetron ODT 4 MG TAB.RAPDIS SL PRN (20:47)
[2017-06-08] MEDS ORDERED: Ketorolac 30 MG/ML VIAL IVP PRN (20:47)
[2017-06-08] MEDS ORDERED: *HR* Dextrose 50 % in Water (Syg) 50 ML SYRINGE IVP PRN (20:50)
[2017-06-08] MEDS ORDERED: D5% in Water 1,000 ML IVC PRN (20:50)
[2017-06-08] MEDS ORDERED: Dextrose Gel 15 GM/37.5 ML TUBE PO PRN ×2 (20:50)
[2017-06-08 21:33] LABS: ABG Base Excess 4 mEq/L (-2 to 3); ABG HCO3 29 mEq/L (21-27); ABG Oxygen Saturation 93 % (95-98); ABG PCO2 44 mmHg (35-45); ABG PH 7.42 pH Units (7.32-7.45); ABG PO2 66 mmHg (85-104); ABG TCO2 30 mEq/L (20-26)
[2017-06-08] MEDS: Budesonide/Formoterol 160/4.5 MDI IH SCH (21:52)
[2017-06-08] MEDS: rOPINIRole 0.25 MG TABLET PO SCH (22:26)
[2017-06-08] MEDS: 0.9 % Sodium Chloride 1,000 ML IVC SCH (22:27)
[2017-06-08] MEDS: Diphenoxylate/Atropine 1 TAB TABLET PO SCH (22:27)
[2017-06-08] MEDS: Insulin LISPRO 300 UNITS/3 ML VIAL SQ SCH (22:29)
[2017-06-09] MEDS: Gabapentin 100 MG CAPSULE PO SCH ×5 (00:47→21:03)
[2017-06-09 04:15] LABS: Basophils % 0.4 %; Eosinophils # 0.2 K/mcL (0.0-0.6); Eosinophils % 2.1 %; Hematocrit 42.2 % (35.3-44.9); Hemoglobin 14.3 g/dL (11.5-15.4); Immature Granulocytes % 0.3 % (0-4); Lymphocytes # 2.4 K/mcL (0.6-4.6); Lymphocytes % 32.7 %; Mean Corpuscular HGB Conc 33.9 g/dL (31.6-35.5); Mean Corpuscular Volume 85.6 fL (83.0-100.0); Mean Platelet Volume 10.1 fL (9.4-12.4); Monocytes # 0.4 K/mcL (0.0-1.3); Monocytes % 5.4 %; Neutrophils # 4.2 K/mcL (1.6-8.9); Platelet Count 185 K/mcL (140-400); Red Blood Count 4.93 M/mcL (3.82-4.97); Red Cell Distribution Width 13.8 % (11.5-14.5); Segmented Neutrophils % 59.1 %
[2017-06-09 04:50] LABS: Chol/HDL Ratio 6.5 (0-4.9); Cholesterol 155 mg/dL (< 200); HDL Cholesterol 24 mg/dL (40-59); Magnesium 1.8 mg/dL (1.6-2.6); Triglycerides 1103 mg/dL (< 150)
[2017-06-09] MEDS: Orphenadrine 100 MG TABLET.ER PO SCH ×2 (05:44→17:04)
[2017-06-09] MEDS ORDERED: Regadenoson 0.4 MG/5 ML SYRINGE IVP ONE (05:59)
[2017-06-09] MEDS: cefTRIAXone 1,000 MG in Water for inj. (sterile) 20 ML 10 ML IVP SCH (09:47)
[2017-06-09] MEDS: Insulin DETEMIR 100 UNIT/ML X5UNITS SQ SCH (09:47)
[2017-06-09] MEDS: rOPINIRole 0.25 MG TABLET PO SCH ×4 (09:48→21:03)
[2017-06-09] MEDS: Diphenoxylate/Atropine 1 TAB TABLET PO SCH ×4 (09:48→21:03)
[2017-06-09] MEDS: Fluticasone Propionate Nasal 50 MCG/SPRAY BOTTLE NS SCH (09:48)
[2017-06-09] MEDS: Fenofibrate 54 MG TABLET PO SCH (09:49)
[2017-06-09] MEDS: Insulin LISPRO 300 UNITS/3 ML VIAL SQ SCH ×4 (09:49→21:21)
[2017-06-09] MEDS: 0.9 % Sodium Chloride 1,000 ML IVC SCH (09:50)
[2017-06-09] MEDS: Budesonide/Formoterol 160/4.5 MDI IH SCH ×2 (10:26→21:44)
--- NOTE | 2017-06-09 18:47 | Internal Med Progress Note ---
Date of Encounter: 06/09/17 Time of Encounter: 11:00 - Assessment and plan (1) UTI (urinary tract infection) Current Visit: Yes Status: Acute Assessment and plan: Patient's altered mental status has resolved on IV ceftriaxone for treatment of UTI Continue current medical management Qualifiers: Urinary tract infection type: acute cystitis Hematuria presence: without hematuria Qualified Code(s): N30.00 - Acute cystitis without hematuria (2) Chest pain Current Visit: Yes Status: Acute Assessment and plan: Patient's chest pain has resolved this morning on exam Cardiac enzymes negative Pharmacologic stress ECG is negative for ischemia Qualifiers: Qualified Code(s): R07.9 - Chest pain, unspecified (3) COPD (chronic obstructive pulmonary disease) Current Visit: Yes Status: Chronic Assessment and plan: No exacerbation; continue home medications Qualifiers: COPD type: emphysema Emphysema type: unspecified Qualified Code(s): J43.9 - Emphysema, unspecified (4) Chronic kidney disease Current Visit: No Status: Chronic Qualifiers: Chronic kidney disease stage: stage 3 (moderate) Qualified Code(s): N18.3 - Chronic kidney disease, stage 3 (moderate) (5) HLD (hyperlipidemia) Current Visit: No Status: Chronic Assessment and plan: Continue statin Qualifiers: Hyperlipidemia type: pure hypercholesterolemia Qualified Code(s): E78.00 - Pure hypercholesterolemia, unspecified; E78.0 - Pure hypercholesterolemia (6) HTN (hypertension) Current Visit: No Status: Chronic Assessment and plan: Controlled; continue atenolol and Dyazide Qualifiers: Hypertension type: essential hypertension Qualified Code(s): I10 - Essential (primary) hypertension (7) IDDM (insulin dependent diabetes mellitus) Current Visit: No Status: Chronic Assessment and plan: Controlled; continue sliding scale insulin (8) Obesity, Class II, BMI 35.0-39.9, with comorbidity (see actual BMI) Current Visit: No Status: Chronic Assessment and plan: Lifestyle modifications - Time Spent With Patient Total time spent is greater than 50% in coordination of care (as documented) at patient's floor/unit and/or counseling patient: - Subjective Interval history: Altered mental status has resolved Continue treatment for UTI - Constitutional Vitals: Temp Pulse Resp BP Pulse Ox 98.3 F 63 16 118/86 91 06/09/17 16:26 06/09/17 16:26 06/09/17 16:26 06/09/17 16:26 06/09/17 16:26 General appearance: Present: no acute distress - Respiratory Respiratory exam: Present: CTAB. Absent: accessory muscle use, rales, rhonchi, wheezes - Cardiovascular Cardiovascular exam: Present: RRR, +S1, +S2. Absent: diastolic murmur, gallop, rubs, systolic murmur Internal Medicine: Result - Labs CBC & Chem 7: 06/09/17 03:48 06/08/17 14:31 Labs: Short CBC 06/09/17 Range/Units 03:48 WBC 7.2 (4.3-11.1) K/mcL Hgb 14.3 (11.5-15.4) g/dL Hct 42.2 (35.3-44.9) % Plt Count 185 (140-400) K/mcL Neutrophils # 4.2 (1.6-8.9) K/mcL Cardiac Enzymes 06/08/17 06/09/17 06/09/17 Range/Units 21:40 03:48 16:43 Troponin I < 0.03 < 0.03 < 0.03 (< 0.04) ng/mL - ABG Interpretation ABG results: ABG ABG pH 7.42 pH Units (7.32-7.45) 06/08/17 21:29 ABG pCO2 44 mmHg (35-45) 06/08/17 21:29 ABG pO2 66 mmHg (85-104) L 06/08/17 21:29 ABG O2 Saturation 93 % (95-98) L 06/08/17 21:29 PT/INR, D-dimer PT 10.7 Seconds (9.4-12.1) 06/08/17 14:31 Consult Discharge Plan - Plan Referrals: Giulia Garcia MD [Primary Care Provider] - 06/17/17 3:00 pm
[2017-06-09] MEDS: *HR* Heparin 5,000 UNIT/ML VIAL SQ SCH (21:03)
[2017-06-10] MEDS: *HR* Heparin 5,000 UNIT/ML VIAL SQ SCH ×2 (05:56→13:44)
[2017-06-10] MEDS: Orphenadrine 100 MG TABLET.ER PO SCH (05:57)
[2017-06-10] MEDS: Budesonide/Formoterol 160/4.5 MDI IH SCH (07:31)
[2017-06-10] MEDS: Insulin LISPRO 300 UNITS/3 ML VIAL SQ SCH ×2 (08:19→11:48)
[2017-06-10] MEDS: Fluticasone Propionate Nasal 50 MCG/SPRAY BOTTLE NS SCH (08:21)
[2017-06-10] MEDS: Diphenoxylate/Atropine 1 TAB TABLET PO SCH ×2 (08:22→13:35)
[2017-06-10] MEDS: Gabapentin 100 MG CAPSULE PO SCH ×2 (08:22→13:35)
[2017-06-10] MEDS: Fenofibrate 54 MG TABLET PO SCH (08:22)
[2017-06-10] MEDS: rOPINIRole 0.25 MG TABLET PO SCH ×2 (08:22→13:35)
[2017-06-10] MEDS: cefTRIAXone 1,000 MG in Water for inj. (sterile) 20 ML 10 ML IVP SCH (08:24)
[2017-06-10] MEDS: Insulin DETEMIR 100 UNIT/ML X5UNITS SQ SCH (08:29)
[2017-06-10 10:21] LABS: Basophils % 0.3 %; Eosinophils # 0.2 K/mcL (0.0-0.6); Eosinophils % 2.5 %; Hematocrit 40.1 % (35.3-44.9); Hemoglobin 13.1 g/dL (11.5-15.4); Immature Granulocytes % 0.3 % (0-4); Lymphocytes # 2.1 K/mcL (0.6-4.6); Lymphocytes % 31.5 %; Mean Corpuscular HGB Conc 32.7 g/dL (31.6-35.5); Mean Corpuscular Hemoglobin 28.9 pg (28.0-33.3); Mean Corpuscular Volume 88.3 fL (83.0-100.0); Monocytes # 0.4 K/mcL (0.0-1.3); Monocytes % 5.3 %; Platelet Count 160 K/mcL (140-400); Red Blood Count 4.54 M/mcL (3.82-4.97); Red Cell Distribution Width 13.9 % (11.5-14.5); Segmented Neutrophils % 60.1 %
[2017-06-10 10:37] LABS: Calcium 8.6 mg/dL (8.6-10.3); Potassium 4.2 mEq/L (3.5-5.1)
[2017-06-10 14:54] VITALS: BP 119/68
--- NOTE | 2017-06-10 15:02 | Discharge Summary ---
- NOTES TO OUTPATIENT PROVIDER Notes to Outpatient Provider: none Orders not resulted at time of discharge: Pending orders 06/08/17 20:46 NM jose m perf SPECT multi [NM] Routine 06/08/17 21:43 Culture,Blood [BC] Routine Date of Encounter: 06/10/17 Time of Encounter: 11:00 - Discharge Diagnosis (1) UTI (urinary tract infection) Priority: Primary Status: Acute Qualifiers: Urinary tract infection type: acute cystitis Hematuria presence: without hematuria Qualified Code(s): N30.00 - Acute cystitis without hematuria (2) Chest pain Priority: Primary Status: Acute Qualifiers: Ischemic chest pain type: unspecified angina pectoris type Qualified Code(s ): I25.9 - Chronic ischemic heart disease, unspecified (3) COPD (chronic obstructive pulmonary disease) Priority: Secondary Status: Chronic Qualifiers: COPD type: emphysema Emphysema type: unspecified Qualified Code(s): J43.9 - Emphysema, unspecified (4) Chronic kidney disease Priority: Secondary Status: Chronic Qualifiers: Chronic kidney disease stage: stage 3 (moderate) Qualified Code(s): N18.3 - Chronic kidney disease, stage 3 (moderate) (5) HLD (hyperlipidemia) Priority: Secondary Status: Chronic Qualifiers: Hyperlipidemia type: pure hypercholesterolemia Qualified Code(s): E78.00 - Pure hypercholesterolemia, unspecified; E78.0 - Pure hypercholesterolemia (6) HTN (hypertension) Priority: Secondary Status: Chronic Qualifiers: Hypertension type: essential hypertension Qualified Code(s): I10 - Essential (primary) hypertension (7) IDDM (insulin dependent diabetes mellitus) Priority: Secondary Status: Chronic (8) Obesity, Class II, BMI 35.0-39.9, with comorbidity (see actual BMI) Priority: Secondary Status: Chronic Hospital course: Patient is a 57-year-old female with past medical history significant for hypertension, obesity, diabetes, COPD, high cholesterol and restless leg syndrome who presented to the ER on 06/08/17 due to altered mental status. Family reported that patient had mental status changes and complained of headaches. Patient also complained of 3 days of chest pain which she described as pressure which sometimes radiated to her shoulder. She was brought to [facility] for further evaluation. During patients hospital stay her altered mental status resolved and she was treated for UTI with IV antibiotic. Patients cardiac biomarkers were also negative and her nuclear medicine stress tests showed no signs of ischemia. She will be discharged to finish a 3 day course of oral antibiotics for UTI. - Time Spent with Patient Total time spent providing and/or coordinating discharge services: Less than 30 minutes - Discharge Medications Prescriptions: Ciprofloxacin HCl [Cipro] 500 mg PO DAILY #3 tablet Home Medications: Fluticasone Propionate Nasal [Flonase] 1 spray NS DAILY 11/11/14 [History] Potassium Chloride 20 meq PO DAILY 11/11/14 [History] rOPINIRole [Requip] 0.25 mg PO QID 11/11/14 [History] Triamterene/HCTZ 37.5/25mg [Dyazide] 1 tab PO DAILY 03/13/15 [History] Fenofibrate [Lofibra] 145 mg PO DAILY 07/24/15 [History] Lisinopril [Zestril] 10 mg PO DAILY 07/24/15 [History] Nitroglycerin [Nitrostat] 0.4 mg SL Q5-10MIN PRN 07/24/15 [History] Gabapentin [Neurontin] 800 mg PO 3-4XD 08/02/16 [History] Citalopram Hydrobromide [Citalopram HBr] 10 mg PO DAILY 06/09/17 [History] Insulin DETEMIR [Levemir] 30 unit IJ HS 06/09/17 [History] Metoprolol [Lopressor] 25 mg PO BID 06/09/17 [History] Valsartan 40 mg PO DAILY 06/09/17 [History] raNITIdine HCl [Ranitidine HCl] 150 mg PO BID 06/09/17 [History] Ciprofloxacin HCl [Cipro] 500 mg PO DAILY #3 tablet 06/10/17 [Rx] Allergies/Adverse Reactions: 3 Allergy/AdvReac Type Severity Reaction Status Date / Time No Known Allergies Allergy Verified 06/09/17 17:29 Date of admission: 06/08/17 19:06 Primary care physician: Giulia Garcia, Consults: 06/08/17 20:17 Consult to Nutrition [CONS] Routine Comment: Consulting Provider: NUTRITION Reason for Dietary Consult: Diet Education - Constitutional Vitals: Temp Pulse Resp BP Pulse Ox 98.1 F 68 16 119/68 93 06/10/17 14:48 06/10/17 14:48 06/10/17 14:48 06/10/17 14:48 06/10/17 14:48 General appearance: Present: no acute distress - Respiratory Respiratory exam: Present: CTAB. Absent: accessory muscle use, rales, rhonchi, wheezes - Cardiovascular Cardiovascular exam: Present: RRR, +S1, +S2. Absent: diastolic murmur, gallop, rubs, systolic murmur - Patient Status Disposition: Home, Self-Care Condition: Fair - Discharge Instructions Instructions: Urinary Tract Infection in Women (DC) Follow Up With: Giulia Garcia MD [Primary Care Provider] - 06/17/17 3:00 pm
--- NOTE | 2017-06-11 16:38 | Electrocardiograph Report ---
[address] [address] Test Date: 2017-06-08 Pat Name: Julianna Bedolla Department: 103 Room: 3A43 Gender: F Gaming Worker: : 1960 Requested By: Trenton Bach Order Number: [id number] Reading MD: Sofie Finley Measurements Intervals [place] Rate: 112 P: 86 NM: 137 QRS: 81 QRSD: 89 T: 68 QT: 332 QTc: 398 Interpretive Statements SINUS TACHYCARDIA ABNORMAL RHYTHM ECG Electronically Signed On 06-11-2017 16:37:25 EDT by Sofie Finley
== END 2017-06-10 15:51 | disposition home or self-care (01) ==
LOC: 3ANU 14:17 → EMEROO 14:17 → SUATTDRO 19:06 → 3ANU 19:52
PROVIDERS: ADMIT Internal Medicine Cardiovascular Disease; ATTEND Hospitalist

== ENCOUNTER 2019-03-18 00:29 | Inpatient (IN) ==
[2019-03-18 01:46] LABS: Basophils % 0.3 %; Eosinophils % 0.1 %; Hematocrit 53.4 % (35.3-44.9); Hemoglobin 18.1 g/dL (11.5-15.4); Immature Granulocytes % 0.6 % (0-4); Lymphocytes # 1.5 K/mcL (0.6-4.6); Mean Corpuscular HGB Conc 33.9 g/dL (31.6-35.5); Mean Corpuscular Hemoglobin 29.7 pg (28.0-33.3); Mean Corpuscular Volume 87.7 fL (83.0-100.0); Mean Platelet Volume 9.5 fL (9.4-12.4); Monocytes # 0.7 K/mcL (0.0-1.3); Monocytes % 7.6 %; Neutrophils # 6.5 K/mcL (1.6-8.9); Platelet Count 172 K/mcL (140-400); Red Blood Count 6.09 M/mcL (3.82-4.97); Red Cell Distribution Width 14.1 % (11.5-14.5); Segmented Neutrophils % 74.4 %; White Blood Count 8.7 K/mcL (4.3-11.1)
[2019-03-18 01:59] LABS: BUN/Creatinine Ratio 26 (6-26); Blood Urea Nitrogen 26 mg/dL (6-20); Calcium 9.1 mg/dL (8.6-10.3); Carbon Dioxide 29 mEq/L (23-29); Chloride 100 mEq/L (98-107); Glucose 177 mg/dL (70-105); Osmolality,Calculated 295 (280-300); Potassium 4.1 mEq/L (3.5-5.1); Sodium 138 mEq/L (136-145); eGFR For African Americans > 60 (> 60); eGFR For Non-African Americans 58 (> 60)
[2019-03-18 02:01] LABS: Troponin I < 0.03 ng/mL (< 0.04)
[2019-03-18] MEDS ORDERED: Ipratropium/Albuterol Neb 3 ML IH ONE (02:49)
[2019-03-18] MEDS ORDERED: Azithromycin 500 MG in 0.9 % Sodium Chloride 250 ML IVPB ONE (04:43)
[2019-03-18] MEDS ORDERED: predniSONE 20 MG TABLET PO STA (04:44)
[2019-03-18] MEDS ORDERED: Naloxone 0.4 MG/ML INJ IVP PRN (05:39)
[2019-03-18] MEDS ORDERED: Nicotine 14 MG PATCH.TD24 TD PRN (05:44)
[2019-03-18] MEDS: MethylPREDNISolone 40 MG/ML VIAL IVP SCH ×4 (06:29→23:39)
[2019-03-18] MEDS ORDERED: Dextrose Gel 15 GM/37.5 ML TUBE PO PRN ×2 (06:34)
[2019-03-18] MEDS ORDERED: D5% in Water 1,000 ML IVC PRN (06:34)
[2019-03-18] MEDS ORDERED: *HR* Dextrose 50 % in Water (Syg) 50 ML SYRINGE IVP PRN (06:34)
[2019-03-18 08:03] LABS: Estimated Average Glucose 235 mg/dl
[2019-03-18 08:23] LABS: ABG Base Excess 4 mEq/L (-2 to 3); ABG HCO3 30 mEq/L (21-27); ABG Oxygen Saturation 85 % (95-98); ABG PCO2 50 mmHg (35-45); ABG PH 7.38 pH Units (7.32-7.45); ABG PO2 52 mmHg (85-104); ABG TCO2 32 mEq/L (20-26)
[2019-03-18] MEDS: Insulin LISPRO 300 UNITS/3 ML VIAL SQ SCH ×4 (08:45→23:36)
[2019-03-18 09:57] LABS: Adenovirus Not Detected (Not Detect); Bordetella Pertussis Not Detected (Not Detect); Chlamydophila pneumoniae Not Detected (Not Detect); Coronavirus 229E Not Detected (Not Detect); Coronavirus HKU1 Not Detected (Not Detect); Coronavirus NL63 Not Detected (Not Detect); Coronavirus OC43 Not Detected (Not Detect); Human Metapneumovirus Not Detected (Not Detect); Human Rhinovirus/Enterovirus Not Detected (Not Detect); Influenza B Not Detected (Not Detect); Mycoplasma pneumoniae Not Detected (Not Detect); Parainfluenza Virus 1 Not Detected (Not Detect); Parainfluenza Virus 2 Not Detected (Not Detect); Parainfluenza Virus 3 Not Detected (Not Detect); Parainfluenza Virus 4 Not Detected (Not Detect); Respiratory Syncytial Virus Not Detected (Not Detect)
[2019-03-18 09:59] LABS: Influenza A Subtype 2009 H1 DETECTED (Not Detect)
[2019-03-18] MEDS: Ipratropium/Albuterol Neb 3 ML IH SCH ×3 (10:40→22:55)
[2019-03-18] MEDS ORDERED: Furosemide 20 MG/2 ML VIAL IVP ONE (10:54)
[2019-03-18] MEDS: *HR* Heparin 5,000 UNIT/ML VIAL SQ SCH ×2 (12:19→21:14)
[2019-03-18 12:24] LABS: ABG Base Excess 7 mEq/L (-2 to 3); ABG HCO3 34 mEq/L (21-27); ABG Oxygen Saturation 92 % (95-98); ABG PCO2 57 mmHg (35-45); ABG PH 7.39 pH Units (7.32-7.45); ABG PO2 67 mmHg (85-104); ABG TCO2 36 mEq/L (20-26); Blood Gas Pressure Support 6 cm H2O
[2019-03-18] MEDS ORDERED: GuaiFENesin Liq 200 MG/10 ML UDC PO PRN (14:42)
[2019-03-18] MEDS ORDERED: Acetaminophen 325 MG TABLET PO PRN (14:43)
[2019-03-18] MEDS ORDERED: Insulin DETEMIR 100 UNIT/ML X5UNITS SQ SCH (21:00)
[2019-03-18] MEDS: rOPINIRole 1 MG TABLET PO SCH (21:13)
[2019-03-18] MEDS: Gabapentin 400 MG CAPSULE PO SCH (21:13)
[2019-03-19] MEDS: Ipratropium/Albuterol Neb 3 ML IH SCH ×4 (04:07→22:21)
[2019-03-19 04:10] LABS: ABG Base Excess 6 mEq/L (-2 to 3); ABG HCO3 35 mEq/L (21-27); ABG Oxygen Saturation 90 % (95-98); ABG PCO2 64 mmHg (35-45); ABG PH 7.34 pH Units (7.32-7.45); ABG PO2 65 mmHg (85-104); ABG TCO2 36 mEq/L (20-26)
[2019-03-19] MEDS: MethylPREDNISolone 40 MG/ML VIAL IVP SCH ×3 (05:22→22:17)
[2019-03-19] MEDS: *HR* Heparin 5,000 UNIT/ML VIAL SQ SCH ×3 (05:22→22:16)
[2019-03-19 06:38] LABS: Basophils % 0.1 %; Hematocrit 52.1 % (35.3-44.9); Hemoglobin 17.8 g/dL (11.5-15.4); Immature Granulocytes % 0.4 % (0-4); Lymphocytes # 0.5 K/mcL (0.6-4.6); Lymphocytes % 6.3 %; Mean Corpuscular HGB Conc 34.2 g/dL (31.6-35.5); Mean Corpuscular Volume 87.7 fL (83.0-100.0); Mean Platelet Volume 9.7 fL (9.4-12.4); Monocytes # 0.3 K/mcL (0.0-1.3); Monocytes % 3.6 %; Neutrophils # 6.7 K/mcL (1.6-8.9); Platelet Count 158 K/mcL (140-400); Red Blood Count 5.94 M/mcL (3.82-4.97); Red Cell Distribution Width 13.9 % (11.5-14.5); Segmented Neutrophils % 89.6 %; White Blood Count 7.5 K/mcL (4.3-11.1)
[2019-03-19 06:56] LABS: Alanine Aminotransferase 18 Units/L (7-52); Albumin 3.8 g/dL (3.5-5.7); Albumin/Globulin Ratio 1.5 (1.1-2.2); Alkaline Phosphatase 61 Units/L (34-104); Aspartate Amino Transferase 16 Units/L (13-39); BUN/Creatinine Ratio 36 (6-26); Bilirubin,Total 0.5 mg/dL (0.3-1.0); Blood Urea Nitrogen 38 mg/dL (6-20); Calcium 8.8 mg/dL (8.6-10.3); Carbon Dioxide 33 mEq/L (23-29); Chloride 96 mEq/L (98-107); Globulin 2.6 g/dL (2.4-3.5); Glucose 385 mg/dL (70-105); Osmolality,Calculated 311 (280-300); Potassium 4.3 mEq/L (3.5-5.1); Sodium 138 mEq/L (136-145); Total Protein 6.4 g/dL (6.4-8.9); eGFR For African Americans > 60 (> 60); eGFR For Non-African Americans 54 (> 60)
[2019-03-19] MEDS ORDERED: MethylPREDNISolone 40 MG/ML VIAL ONE (07:54)
[2019-03-19] MEDS: Insulin LISPRO 300 UNITS/3 ML VIAL SQ SCH ×4 (07:57→22:17)
[2019-03-19] MEDS: Gabapentin 400 MG CAPSULE PO SCH ×3 (07:59→22:15)
[2019-03-19] MEDS: Aspirin Enteric Coated 81 MG Tablet PO SCH (08:02)
[2019-03-19] MEDS: rOPINIRole 1 MG TABLET PO SCH ×2 (08:02→22:14)
[2019-03-19] MEDS: Azithromycin 500 MG in 0.9 % Sodium Chloride 250 ML IVPB SCH (08:26)
[2019-03-19] MEDS ORDERED: Insulin LISPRO 300 UNITS/3 ML VIAL SQ SCH (16:30)
[2019-03-19] MEDS ORDERED: Insulin DETEMIR 100 UNIT/ML X5UNITS SQ SCH (21:00)
[2019-03-20] MEDS: Ipratropium/Albuterol Neb 3 ML IH SCH ×4 (03:57→22:24)
[2019-03-20 06:09] LABS: Mean Corpuscular HGB Conc 32.4 g/dL (31.6-35.5); Mean Corpuscular Hemoglobin 29.9 pg (28.0-33.3); Mean Corpuscular Volume 92.1 fL (83.0-100.0); Mean Platelet Volume 9.9 fL (9.4-12.4); Platelet Count 159 K/mcL (140-400); Red Blood Count 5.32 M/mcL (3.82-4.97); Red Cell Distribution Width 13.9 % (11.5-14.5); White Blood Count 8.5 K/mcL (4.3-11.1)
[2019-03-20 06:10] LABS: Hemoglobin 15.9 g/dL (11.5-15.4)
[2019-03-20] MEDS: *HR* Heparin 5,000 UNIT/ML VIAL SQ SCH ×3 (06:14→21:01)
[2019-03-20 06:23] LABS: VBG HCO3 34 mEq/L (21-27); VBG PCO2 76 mmHg (41-51); VBG PH 7.26 pH Units (7.32-7.42); VBG PO2 83 mmHg (25-50)
[2019-03-20 06:29] LABS: BUN/Creatinine Ratio 33 (6-26); Blood Urea Nitrogen 30 mg/dL (6-20); Calcium 8.4 mg/dL (8.6-10.3); Carbon Dioxide 34 mEq/L (23-29); Chloride 98 mEq/L (98-107); Glucose 354 mg/dL (70-105); Osmolality,Calculated 308 (280-300); Potassium 4.9 mEq/L (3.5-5.1); Sodium 139 mEq/L (136-145); eGFR For African Americans > 60 (> 60); eGFR For Non-African Americans > 60 (> 60)
[2019-03-20] MEDS: Aspirin Enteric Coated 81 MG Tablet PO SCH (08:31)
[2019-03-20] MEDS: Gabapentin 400 MG CAPSULE PO SCH ×3 (08:31→21:02)
[2019-03-20] MEDS: rOPINIRole 1 MG TABLET PO SCH ×2 (08:32→21:02)
[2019-03-20] MEDS: Insulin LISPRO 300 UNITS/3 ML VIAL SQ SCH ×6 (08:32→21:02)
[2019-03-20] MEDS: MethylPREDNISolone 40 MG/ML VIAL IVP SCH ×2 (08:32→21:01)
[2019-03-20] MEDS: Azithromycin 500 MG in 0.9 % Sodium Chloride 250 ML IVPB SCH (08:34)
[2019-03-20] MEDS ORDERED: Furosemide 20 MG/2 ML VIAL IVP ONE (11:50)
[2019-03-20] MEDS ORDERED: Insulin DETEMIR 100 UNIT/ML X5UNITS SQ SCH (21:00)
[2019-03-21 01:51] LABS: Hematocrit 49.6 % (35.3-44.9); Hemoglobin 16.3 g/dL (11.5-15.4); Mean Corpuscular HGB Conc 32.9 g/dL (31.6-35.5); Mean Corpuscular Hemoglobin 29.7 pg (28.0-33.3); Mean Corpuscular Volume 90.3 fL (83.0-100.0); Mean Platelet Volume 9.9 fL (9.4-12.4); Platelet Count 180 K/mcL (140-400); Red Blood Count 5.49 M/mcL (3.82-4.97); Red Cell Distribution Width 13.7 % (11.5-14.5); White Blood Count 8.2 K/mcL (4.3-11.1)
[2019-03-21 01:56] LABS: VBG HCO3 29 mEq/L (21-27); VBG PCO2 53 mmHg (41-51); VBG PH 7.35 pH Units (7.32-7.42); VBG PO2 98 mmHg (25-50)
[2019-03-21 02:12] LABS: BUN/Creatinine Ratio 39 (6-26); Blood Urea Nitrogen 37 mg/dL (6-20); Calcium 8.5 mg/dL (8.6-10.3); Carbon Dioxide 33 mEq/L (23-29); Chloride 96 mEq/L (98-107); Glucose 294 mg/dL (70-105); Osmolality,Calculated 300 (280-300); Potassium 4.8 mEq/L (3.5-5.1); Sodium 135 mEq/L (136-145); eGFR For African Americans > 60 (> 60); eGFR For Non-African Americans > 60 (> 60)
[2019-03-21] MEDS: Ipratropium/Albuterol Neb 3 ML IH SCH ×3 (04:15→16:12)
[2019-03-21] MEDS: *HR* Heparin 5,000 UNIT/ML VIAL SQ SCH (05:36)
[2019-03-21 07:42] VITALS: BP 122/69
[2019-03-21] MEDS: Aspirin Enteric Coated 81 MG Tablet PO SCH (08:23)
[2019-03-21] MEDS: Gabapentin 400 MG CAPSULE PO SCH (08:23)
[2019-03-21] MEDS: MethylPREDNISolone 40 MG/ML VIAL IVP SCH (08:24)
[2019-03-21] MEDS: rOPINIRole 1 MG TABLET PO SCH (08:24)
[2019-03-21] MEDS: Insulin LISPRO 300 UNITS/3 ML VIAL SQ SCH ×2 (08:25)
[2019-03-21] MEDS ORDERED: Azithromycin 250 MG TABLET PO SCH (09:00)
== END 2019-03-21 17:13 | disposition home or self-care (01) | DRG 193 ==
LOC: EMEROOARM 00:29 → 3BNU 00:29 → SUATTDRO 05:40 → 3BNU 06:11 → 2NENU 17:13
PROVIDERS: ADMIT Internal Medicine; ATTEND Internal Medicine

== ENCOUNTER 2020-06-18 01:40 | Inpatient (IN) ==
[~2020-06-18 01:40] MED LIST: *HR* Etomidate 20 MG/10 ML AMPUL IVP ONE; *HR* Rocuronium Bromide 50 MG/5 ML VIAL IVP ONE
[2020-06-18] MEDS ORDERED: Naloxone 0.4 MG/ML INJ IVP PRN (01:52)
[2020-06-18] MEDS ORDERED: Artificial Tears SOLN 15 ML BOTTLE BOTH EYES PRN (01:54)
[2020-06-18] MEDS ORDERED: D5% in Water 1,000 ML IVC PRN (02:05)
[2020-06-18] MEDS ORDERED: Dextrose Gel 15 GM/37.5 ML TUBE PO PRN ×2 (02:05)
[2020-06-18] MEDS ORDERED: *HR* Dextrose 50 % in Water (Vial) 50 ML VIAL IVP PRN (02:05)
[2020-06-18 02:19] LABS: ABG Base Excess -4 mEq/L (-2 to 3); ABG HCO3 27 mEq/L (21-27); ABG Oxygen Saturation 85 % (95-98); ABG PCO2 72 mmHg (35-45); ABG PH 7.18 pH Units (7.32-7.45); ABG PO2 65 mmHg (85-104); ABG TCO2 29 mEq/L (20-26); Blood Gas VT 480 cc
[2020-06-18] MEDS ORDERED: *HR* Midazolam HCl 5 MG/5 ML VIAL IVP ONE ×2 (02:26→02:30)
[2020-06-18] MEDS: FentaNYL (PF) 1,000 MCG/100 ML IV.SOLN IVC SCH ×3 (02:44→16:45)
[2020-06-18] MEDS: Artificial Tears SOLN 15 ML BOTTLE BOTH EYES SCH ×6 (03:07→23:34)
[2020-06-18 03:14] LABS: Basophils # 0.1 K/mcL (0.0-0.2); Basophils % 0.6 %; Eosinophils % 0.3 %; Hematocrit 49.6 % (35.3-44.9); Hemoglobin 15.6 g/dL (11.5-15.4); Immature Granulocytes % 0.4 % (0-4); Lymphocytes # 1.2 K/mcL (0.6-4.6); Lymphocytes % 11.9 %; Mean Corpuscular HGB Conc 31.5 g/dL (31.6-35.5); Mean Corpuscular Volume 95.4 fL (83.0-100.0); Mean Platelet Volume 10.2 fL (9.4-12.4); Monocytes # 0.3 K/mcL (0.0-1.3); Monocytes % 2.4 %; Neutrophils # 8.8 K/mcL (1.6-8.9); Platelet Count 200 K/mcL (140-400); Red Cell Distribution Width 13.6 % (11.5-14.5); Segmented Neutrophils % 84.4 %; White Blood Count 10.4 K/mcL (4.3-11.1)
[2020-06-18 03:28] LABS: BUN/Creatinine Ratio 15 (6-26); Blood Urea Nitrogen 13 mg/dL (6-20); Calcium 7.8 mg/dL (8.6-10.3); Carbon Dioxide 23 mEq/L (23-29); Chloride 109 mEq/L (98-107); Glucose 261 mg/dL (70-105); Magnesium 1.5 mg/dL (1.6-2.6); Osmolality,Calculated 297 (280-300); Potassium 4.4 mEq/L (3.5-5.1); Sodium 139 mEq/L (136-145); eGFR For African Americans > 60 (> 60); eGFR For Non-African Americans > 60 (> 60)
[2020-06-18] MEDS: Ipratropium/Albuterol Neb 3 ML IH SCH ×6 (03:33→23:33)
[2020-06-18] MEDS ORDERED: Furosemide 20 MG/2 ML VIAL IVP ONE (04:07)
[2020-06-18] MEDS ORDERED: Perflutren Lipid Microsphere 1.3 ML in 0.9 % Sodium Chloride 8.7 ML IVP PRN (04:08)
[2020-06-18 04:09] LABS: ABG Base Excess -3 mEq/L (-2 to 3); ABG HCO3 25 mEq/L (21-27); ABG Oxygen Saturation 92 % (95-98); ABG PCO2 55 mmHg (35-45); ABG PH 7.27 pH Units (7.32-7.45); ABG PO2 75 mmHg (85-104); ABG TCO2 27 mEq/L (20-26); Blood Gas VT 480 cc
[2020-06-18] MEDS: *HR* Enoxaparin 40 MG/0.4 ML SYRINGE SQ SCH (05:13)
[2020-06-18] MEDS: Insulin LISPRO 300 UNITS/3 ML VIAL SUBQ SCH ×4 (05:49→23:34)
[2020-06-18] MEDS ORDERED: Isovue-370 500 ML BOTTLE IVP ONE (07:44)
[2020-06-18] MEDS ORDERED: Albuterol 2.5 MG/3 ML NEBULIZER IH PRN (07:48)
[2020-06-18] MEDS: Chlorhexidine Rinse 15 ML MOUTHWASH MM SCH ×2 (10:09→20:07)
[2020-06-18] MEDS: Pantoprazole 40 MG VIAL IVP SCH (10:09)
[2020-06-18] MEDS: cefTRIAXone 1,000 MG in 0.9 % Sodium Chloride Mini Bag 100 ML IVPB SCH (10:09)
[2020-06-18] MEDS: Azithromycin 500 MG in 0.9 % Sodium Chloride 250 ML IVPB SCH (10:10)
[2020-06-18] MEDS: methylPREDNISolone 125 MG/2 ML VIAL IVP SCH ×3 (10:11→23:33)
[2020-06-18 13:54] LABS: Adenovirus Not Detected (Not Detect); Bordetella Pertussis Not Detected (Not Detect); Chlamydophila pneumoniae Not Detected (Not Detect); Coronavirus 229E Not Detected (Not Detect); Coronavirus HKU1 Not Detected (Not Detect); Coronavirus NL63 Not Detected (Not Detect); Coronavirus OC43 Not Detected (Not Detect); Human Metapneumovirus Not Detected (Not Detect); Human Rhinovirus/Enterovirus Not Detected (Not Detect); Influenza A Subtype 2009 H1 Not Detected (Not Detect); Influenza B Not Detected (Not Detect); Mycoplasma pneumoniae Not Detected (Not Detect); Parainfluenza Virus 1 Not Detected (Not Detect); Parainfluenza Virus 2 Not Detected (Not Detect); Parainfluenza Virus 3 Not Detected (Not Detect); Parainfluenza Virus 4 Not Detected (Not Detect); Respiratory Syncytial Virus Not Detected (Not Detect); SARS-CoV-2 Not Detected (Not Detect)
[2020-06-18] MEDS: Docusate Oral Soln 100 MG/10 ML UDC GTUBE SCH (20:07)
[2020-06-19] MEDS: FentaNYL (PF) 1,000 MCG/100 ML IV.SOLN IVC SCH ×2 (01:07→07:53)
[2020-06-19] MEDS: Artificial Tears SOLN 15 ML BOTTLE BOTH EYES SCH ×4 (02:58→15:57)
[2020-06-19] MEDS: Ipratropium/Albuterol Neb 3 ML IH SCH ×6 (03:36→23:57)
[2020-06-19 04:30] LABS: ABG Base Excess -1 mEq/L (-2 to 3); ABG HCO3 26 mEq/L (21-27); ABG Oxygen Saturation 97 % (95-98); ABG PCO2 50 mmHg (35-45); ABG PH 7.32 pH Units (7.32-7.45); ABG PO2 95 mmHg (85-104); ABG TCO2 27 mEq/L (20-26); Blood Gas VT 480 cc
[2020-06-19 06:01] LABS: Basophils % 0.2 %; Hematocrit 47.7 % (35.3-44.9); Hemoglobin 14.7 g/dL (11.5-15.4); Immature Granulocytes % 0.5 % (0-4); Lymphocytes # 0.7 K/mcL (0.6-4.6); Mean Corpuscular HGB Conc 30.8 g/dL (31.6-35.5); Mean Corpuscular Hemoglobin 29.2 pg (28.0-33.3); Mean Corpuscular Volume 94.6 fL (83.0-100.0); Mean Platelet Volume 10.5 fL (9.4-12.4); Monocytes # 0.6 K/mcL (0.0-1.3); Monocytes % 3.7 %; Neutrophils # 15.3 K/mcL (1.6-8.9); Platelet Count 236 K/mcL (140-400); Red Blood Count 5.04 M/mcL (3.82-4.97); Segmented Neutrophils % 91.6 %; White Blood Count 16.7 K/mcL (4.3-11.1)
[2020-06-19 06:03] LABS: VBG Ionized Calcium 1.05 mmol/L (1.15-1.35)
[2020-06-19] MEDS: *HR* Enoxaparin 40 MG/0.4 ML SYRINGE SQ SCH (06:06)
[2020-06-19] MEDS: Insulin LISPRO 300 UNITS/3 ML VIAL SUBQ SCH ×5 (06:06→23:19)
[2020-06-19 06:25] LABS: BUN/Creatinine Ratio 24 (6-26); Blood Urea Nitrogen 26 mg/dL (6-20); Calcium 8.3 mg/dL (8.6-10.3); Carbon Dioxide 23 mEq/L (23-29); Chloride 105 mEq/L (98-107); Glucose 378 mg/dL (70-105); Magnesium 2.2 mg/dL (1.6-2.6); Osmolality,Calculated 304 (280-300); Phosphorous 3.5 mg/dL (2.7-4.5); Potassium 4.5 mEq/L (3.5-5.1); Sodium 137 mEq/L (136-145); eGFR For African Americans > 60 (> 60); eGFR For Non-African Americans 52 (> 60)
[2020-06-19] MEDS: methylPREDNISolone 125 MG/2 ML VIAL IVP SCH (07:32)
[2020-06-19] MEDS: Docusate Oral Soln 100 MG/10 ML UDC GTUBE SCH ×2 (07:33→19:44)
[2020-06-19] MEDS: Chlorhexidine Rinse 15 ML MOUTHWASH MM SCH (07:33)
[2020-06-19] MEDS: Pantoprazole 40 MG VIAL IVP SCH (07:33)
[2020-06-19] MEDS: Azithromycin 500 MG in 0.9 % Sodium Chloride 250 ML IVPB SCH (07:33)
[2020-06-19] MEDS: cefTRIAXone 1,000 MG in 0.9 % Sodium Chloride Mini Bag 100 ML IVPB SCH (07:34)
[2020-06-19] MEDS ORDERED: Insulin DETEMIR 100 UNIT/ML X5UNITS SUBQ SCH (10:00)
[2020-06-19] MEDS: Calcium Gluconate 1gm/50mL 1 GM/50 ML BAG IVPB PRN (10:54)
[2020-06-19 11:38] LABS: Basophils % 0.1 %; Hematocrit 48.8 % (35.3-44.9); Hemoglobin 15.3 g/dL (11.5-15.4); Immature Granulocytes % 0.5 % (0-4); Lymphocytes # 0.7 K/mcL (0.6-4.6); Lymphocytes % 4.1 %; Mean Corpuscular HGB Conc 31.4 g/dL (31.6-35.5); Mean Corpuscular Hemoglobin 30.2 pg (28.0-33.3); Mean Corpuscular Volume 96.3 fL (83.0-100.0); Mean Platelet Volume 10.5 fL (9.4-12.4); Monocytes # 0.6 K/mcL (0.0-1.3); Monocytes % 3.7 %; Neutrophils # 15.3 K/mcL (1.6-8.9); Platelet Count 247 K/mcL (140-400); Red Blood Count 5.07 M/mcL (3.82-4.97); Red Cell Distribution Width 14.3 % (11.5-14.5); Segmented Neutrophils % 91.6 %; White Blood Count 16.7 K/mcL (4.3-11.1)
[2020-06-19 12:02] LABS: BUN/Creatinine Ratio 30 (6-26); Blood Urea Nitrogen 30 mg/dL (6-20); Calcium 8.4 mg/dL (8.6-10.3); Carbon Dioxide 24 mEq/L (23-29); Chloride 105 mEq/L (98-107); Glucose 346 mg/dL (70-105); Osmolality,Calculated 304 (280-300); Potassium 4.6 mEq/L (3.5-5.1); Sodium 137 mEq/L (136-145); eGFR For African Americans > 60 (> 60); eGFR For Non-African Americans 57 (> 60)
[2020-06-19] MEDS ORDERED: Furosemide 40 MG/4 ML VIAL IVP ONE (15:23)
[2020-06-19 17:22] LABS: VBG Ionized Calcium 1.13 mmol/L (1.15-1.35)
[2020-06-19 17:27] LABS: BUN/Creatinine Ratio 37 (6-26); Blood Urea Nitrogen 32 mg/dL (6-20); Calcium 8.8 mg/dL (8.6-10.3); Carbon Dioxide 28 mEq/L (23-29); Chloride 104 mEq/L (98-107); Glucose 219 mg/dL (70-105); Osmolality,Calculated 304 (280-300); Potassium 4.6 mEq/L (3.5-5.1); Sodium 140 mEq/L (136-145); eGFR For African Americans > 60 (> 60); eGFR For Non-African Americans > 60 (> 60)
[2020-06-19 17:36] LABS: Magnesium 2.3 mg/dL (1.6-2.6); Phosphorous 3.2 mg/dL (2.7-4.5)
[2020-06-19] MEDS: MethylPREDNISolone 40 MG/ML VIAL IVP SCH (17:47)
[2020-06-19] MEDS: rOPINIRole 1 MG TABLET PO SCH (23:58)
[2020-06-20] MEDS: Insulin LISPRO 300 UNITS/3 ML VIAL SUBQ SCH ×5 (03:31→21:27)
[2020-06-20] MEDS: Ipratropium/Albuterol Neb 3 ML IH SCH ×7 (04:01→23:41)
[2020-06-20] MEDS: *HR* Enoxaparin 40 MG/0.4 ML SYRINGE SQ SCH (05:25)
[2020-06-20] MEDS: MethylPREDNISolone 40 MG/ML VIAL IVP SCH (05:26)
[2020-06-20 05:34] LABS: Basophils % 0.1 %; Hematocrit 48.5 % (35.3-44.9); Hemoglobin 15.1 g/dL (11.5-15.4); Immature Granulocytes % 0.3 % (0-4); Lymphocytes # 1.8 K/mcL (0.6-4.6); Lymphocytes % 12.4 %; Mean Corpuscular HGB Conc 31.1 g/dL (31.6-35.5); Mean Corpuscular Hemoglobin 29.3 pg (28.0-33.3); Mean Platelet Volume 10.2 fL (9.4-12.4); Monocytes # 0.8 K/mcL (0.0-1.3); Monocytes % 5.2 %; Neutrophils # 11.9 K/mcL (1.6-8.9); Platelet Count 233 K/mcL (140-400); Red Blood Count 5.16 M/mcL (3.82-4.97); White Blood Count 14.6 K/mcL (4.3-11.1)
[2020-06-20 05:45] LABS: VBG Ionized Calcium 1.08 mmol/L (1.15-1.35)
[2020-06-20 05:53] LABS: BUN/Creatinine Ratio 49 (6-26); Blood Urea Nitrogen 36 mg/dL (6-20); Carbon Dioxide 32 mEq/L (23-29); Chloride 103 mEq/L (98-107); Glucose 147 mg/dL (70-105); Magnesium 2.3 mg/dL (1.6-2.6); Osmolality,Calculated 301 (280-300); Potassium 4.4 mEq/L (3.5-5.1); Sodium 140 mEq/L (136-145); eGFR For African Americans > 60 (> 60); eGFR For Non-African Americans > 60 (> 60)
[2020-06-20] MEDS: Pantoprazole 40 MG VIAL IVP SCH (08:18)
[2020-06-20] MEDS: cefTRIAXone 1,000 MG in 0.9 % Sodium Chloride Mini Bag 100 ML IVPB SCH (08:25)
[2020-06-20] MEDS: Azithromycin 500 MG in 0.9 % Sodium Chloride 250 ML IVPB SCH (08:29)
[2020-06-20] MEDS: Calcium Gluconate 1gm/50mL 1 GM/50 ML BAG IVPB PRN (09:01)
[2020-06-20] MEDS ORDERED: Furosemide 40 MG/4 ML VIAL IVP ONE (10:10)
[2020-06-20] MEDS: Docusate Oral Soln 100 MG/10 ML UDC GTUBE SCH (10:23)
[2020-06-20] MEDS: rOPINIRole 1 MG TABLET PO SCH ×3 (10:23→20:27)
[2020-06-20] MEDS ORDERED: Fluticasone Propionate Nasal 50 MCG/SPRAY BOTTLE NS PRN (15:59)
[2020-06-20] MEDS ORDERED: Dextrose Gel 15 GM/37.5 ML TUBE PO PRN ×2 (15:59)
[2020-06-20] MEDS ORDERED: *HR* Dextrose 50 % in Water (Vial) 50 ML VIAL IVP PRN (15:59)
[2020-06-20] MEDS ORDERED: Albuterol 2.5 MG/3 ML NEBULIZER IH PRN (15:59)
[2020-06-20] MEDS ORDERED: D5% in Water 1,000 ML IVC PRN (15:59)
[2020-06-20] MEDS: Gabapentin 400 MG CAPSULE PO SCH ×2 (17:15→21:26)
[2020-06-20] MEDS: Aspirin Enteric Coated 81 MG Tablet PO SCH (17:15)
[2020-06-20] MEDS: Insulin DETEMIR 100 UNIT/ML X5UNITS SUBQ SCH (20:27)
[2020-06-21] MEDS: Ipratropium/Albuterol Neb 3 ML IH SCH ×3 (04:04→11:35)
[2020-06-21 06:00] LABS: Basophils % 0.2 %; Eosinophils % 0.2 %; Hematocrit 47.5 % (35.3-44.9); Hemoglobin 14.7 g/dL (11.5-15.4); Immature Granulocytes % 0.4 % (0-4); Lymphocytes # 3.2 K/mcL (0.6-4.6); Lymphocytes % 32.2 %; Mean Corpuscular HGB Conc 30.9 g/dL (31.6-35.5); Mean Corpuscular Hemoglobin 29.2 pg (28.0-33.3); Mean Corpuscular Volume 94.2 fL (83.0-100.0); Mean Platelet Volume 10.2 fL (9.4-12.4); Monocytes # 0.7 K/mcL (0.0-1.3); Monocytes % 6.9 %; Platelet Count 233 K/mcL (140-400); Red Blood Count 5.04 M/mcL (3.82-4.97); Red Cell Distribution Width 13.9 % (11.5-14.5); Segmented Neutrophils % 60.1 %
[2020-06-21] MEDS ORDERED: *HR* Enoxaparin 40 MG/0.4 ML SYRINGE SQ SCH (06:00)
[2020-06-21 06:13] LABS: BUN/Creatinine Ratio 44 (6-26); Blood Urea Nitrogen 32 mg/dL (6-20); Calcium 9.2 mg/dL (8.6-10.3); Carbon Dioxide 32 mEq/L (23-29); Chloride 102 mEq/L (98-107); Glucose 146 mg/dL (70-105); Osmolality,Calculated 300 (280-300); Potassium 4.1 mEq/L (3.5-5.1); Sodium 140 mEq/L (136-145); eGFR For African Americans > 60 (> 60); eGFR For Non-African Americans > 60 (> 60)
[2020-06-21] MEDS: Gabapentin 400 MG CAPSULE PO SCH (08:31)
[2020-06-21] MEDS: rOPINIRole 1 MG TABLET PO SCH (08:32)
[2020-06-21] MEDS: Insulin LISPRO 300 UNITS/3 ML VIAL SUBQ SCH ×2 (08:33→12:33)
[2020-06-21] MEDS: Aspirin Enteric Coated 81 MG Tablet PO SCH (08:34)
[2020-06-21] MEDS: Insulin DETEMIR 100 UNIT/ML X5UNITS SUBQ SCH (08:39)
[2020-06-21] MEDS ORDERED: Pantoprazole 40 MG VIAL IVP SCH (09:00)
[2020-06-21] MEDS ORDERED: Lactulose Oral Soln 20 GM/30 ML UDC PO SCH (09:00)
[2020-06-21] MEDS ORDERED: predniSONE 20 MG TABLET PO SCH (09:00)
[2020-06-21 12:23] VITALS: BP 144/87
== END 2020-06-21 13:45 | disposition home or self-care (01) | DRG 208 ==
LOC: ICNU 01:40 → 3ANU 06-20 15:05
PROVIDERS: ADMIT Internal Medicine; ATTEND Internal Medicine

== ENCOUNTER 2021-03-15 20:35 | Observation (INO) ==
[2021-03-15] MEDS ORDERED: Ondansetron 4 MG/2 ML VIAL IVP ONE (21:07)
[2021-03-15] MEDS ORDERED: Morphine Sulfate 2 MG/ML SYRINGE IVP ONE (21:07)
[2021-03-15] MEDS ORDERED: Nitroglycerin 0.4 MG TAB.SUBL SL PRN (21:07)
[2021-03-15] MEDS ORDERED: Aspirin 81 MG TAB.CHEW PO ONE (21:07)
[2021-03-15 21:41] LABS: Basophils % 0.4 %; Eosinophils # 0.3 K/mcL (0.0-0.6); Eosinophils % 3.1 %; Hemoglobin 15.4 g/dL (11.5-15.4); Immature Granulocytes % 0.3 % (0-4); Lymphocytes # 2.7 K/mcL (0.6-4.6); Lymphocytes % 28.6 %; Mean Corpuscular HGB Conc 33.5 g/dL (31.6-35.5); Mean Corpuscular Hemoglobin 30.6 pg (28.0-33.3); Mean Corpuscular Volume 91.5 fL (83.0-100.0); Mean Platelet Volume 9.8 fL (9.4-12.4); Monocytes # 0.6 K/mcL (0.0-1.3); Monocytes % 6.4 %; Neutrophils # 5.7 K/mcL (1.6-8.9); Platelet Count 197 K/mcL (140-400); Red Blood Count 5.03 M/mcL (3.82-4.97); Red Cell Distribution Width 13.2 % (11.5-14.5); Segmented Neutrophils % 61.2 %; White Blood Count 9.3 K/mcL (4.3-11.1)
[2021-03-15 21:48] LABS: Prothrombin Time 10.9 Seconds (9.4-12.1)
[2021-03-15 22:03] LABS: BUN/Creatinine Ratio 23 (6-26); Blood Urea Nitrogen 18 mg/dL (8-23); Carbon Dioxide 31 mEq/L (23-29); Chloride 100 mEq/L (98-107); Glucose 296 mg/dL (70-105); Osmolality,Calculated 297 (280-300); Potassium 4.7 mEq/L (3.5-5.1); Sodium 137 mEq/L (136-145); eGFR For African Americans > 60 (> 60); eGFR For Non-African Americans > 60 (> 60)
[2021-03-15 22:04] LABS: Troponin I < 0.03 ng/mL (< 0.04)
[2021-03-15] MEDS ORDERED: Aspirin 325 MG TABLET PO ONE (23:02)
[2021-03-16 00:30] LABS: Influenza A PCR Negative (Negative); Influenza B PCR Negative (Negative); Resp. Syncytial Virus PCR Negative (Negative)
[2021-03-16 00:32] LABS: SARS-CoV-2 by PCR (In House) Negative (Negative)
[2021-03-16] MEDS ORDERED: Perflutren Lipid Microsphere 1.3 ML in 0.9 % Sodium Chloride 8.7 ML IVP PRN (01:25)
[2021-03-16] MEDS ORDERED: Morphine Sulfate 2 MG/ML SYRINGE IVP PRN (01:26)
[2021-03-16] MEDS ORDERED: Albuterol 2.5 MG/3 ML NEBULIZER IH PRN (01:27)
[2021-03-16] MEDS ORDERED: Fluticasone Propionate Nasal 50 MCG/SPRAY BOTTLE NS PRN (01:27)
[2021-03-16] MEDS ORDERED: *HR* Dextrose 50 % in Water (Syg) 50 ML SYRINGE IVP PRN (01:29)
[2021-03-16] MEDS ORDERED: D5% in Water 1,000 ML IVC PRN (01:29)
[2021-03-16] MEDS ORDERED: Dextrose Gel 15 GM/37.5 ML TUBE PO PRN ×2 (01:29)
[2021-03-16] MEDS ORDERED: Acetaminophen 325 MG TABLET PO PRN (01:31)
[2021-03-16] MEDS ORDERED: Naloxone 0.4 MG/ML INJ IVP PRN (01:31)
[2021-03-16] MEDS: Levalbuterol Neb 1.25 MG/3 ML IH SCH ×2 (04:25→10:52)
[2021-03-16 04:40] LABS: Bilirubin,Urine Negative (Negative); Blood,Urine Negative (Negative); Clarity,Urine Clear (Clear); Color,Urine Light-Yellow (Yellow); Glucose,Urine (UA) 500 mg/dL (Normal); Ketones,Urine Negative (Negative); Leukocyte Esterase,Urine Negative (Negative); Mucus,Urine Few per lpf (None-Few); Nitrite,Urine Negative (Negative); Protein,Urine 50 mg/dL (Neg-Trace); RBC,Urine 0-3 per hpf (0-3); Specific Gravity,Urine 1.021 (1.010-1.025); Squamous Epithelial Cell,Urine Few per hpf (None-Few); Urobilinogen,Urine Normal (Normal); WBC,Urine 0-3 per hpf (0-3)
[2021-03-16] MEDS ORDERED: rOPINIRole 1 MG TABLET PO SCH (05:30)
[2021-03-16 05:54] LABS: Hematocrit 47.8 % (35.3-44.9); Hemoglobin 15.4 g/dL (11.5-15.4); Mean Corpuscular HGB Conc 32.2 g/dL (31.6-35.5); Mean Platelet Volume 9.6 fL (9.4-12.4); Platelet Count 171 K/mcL (140-400); Red Blood Count 5.14 M/mcL (3.82-4.97); Red Cell Distribution Width 13.2 % (11.5-14.5); White Blood Count 8.5 K/mcL (4.3-11.1)
[2021-03-16] MEDS ORDERED: *HR* Heparin 5,000 UNIT/ML VIAL SQ SCH (06:00)
[2021-03-16] MEDS ORDERED: Insulin LISPRO 300 UNITS/3 ML VIAL SUBQ SCH (06:00)
[2021-03-16] MEDS ORDERED: Regadenoson 0.4 MG/5 ML SYRINGE IVP ONE (06:02)
[2021-03-16 06:04] VITALS: TEMP 98
[2021-03-16 06:08] LABS: BUN/Creatinine Ratio 21 (6-26); Blood Urea Nitrogen 19 mg/dL (8-23); Calcium 9.3 mg/dL (8.6-10.3); Carbon Dioxide 31 mEq/L (23-29); Chloride 100 mEq/L (98-107); Chol/HDL Ratio 4.2 (0-4.9); Cholesterol 122 mg/dL (< 200); Glucose 198 mg/dL (70-105); HDL Cholesterol 29 mg/dL (40-59); Magnesium 1.6 mg/dL (1.6-2.6); Osmolality,Calculated 290 (280-300); Potassium 4.6 mEq/L (3.5-5.1); Sodium 136 mEq/L (136-145); Triglycerides 403 mg/dL (< 150); eGFR For African Americans > 60 (> 60); eGFR For Non-African Americans > 60 (> 60)
[2021-03-16 06:09] LABS: Troponin I 0.03 ng/mL (< 0.04)
[2021-03-16 06:23] LABS: Thyroid Stimulating Hormone 2.471 mcIU/mL (0.340-5.600)
[2021-03-16] MEDS ORDERED: Famotidine 20 MG TABLET PO SCH (09:00)
[2021-03-16] MEDS ORDERED: Fenofibrate 54 MG TABLET PO SCH (09:00)
[2021-03-16] MEDS ORDERED: Lactulose Oral Soln 20 GM/30 ML UDC PO SCH (09:00)
[2021-03-16] MEDS ORDERED: Aspirin Enteric Coated 81 MG Tablet PO SCH (09:00)
[2021-03-16] MEDS ORDERED: Gabapentin 400 MG CAPSULE PO SCH (09:00)
[2021-03-16 11:07] VITALS: BP 127/77; PULSE 82; O2SAT 95
[2021-03-16 11:47] LABS: Estimated Average Glucose 249 mg/dl; Hemoglobin A1C 10.3 %
[2021-03-16] MEDS ORDERED: Insulin DETEMIR 100 UNIT/ML X5UNITS SUBQ SCH (21:00)
== END 2021-03-16 15:40 | disposition home or self-care (01) ==
LOC: 4WAOSI 20:35 → EMEROOARM 20:35 → 4WAOSI 03-16 00:17
PROVIDERS: ADMIT Internal Medicine; ATTEND Internal Medicine